=== PATIENT | female | born 1950 | race Caucasian/White ===

== ENCOUNTER 2018-04-12 15:55 | Inpatient (IN) | payer MEDICARE ==
[~2018-04-12] VITALS: Ht 157.5 cm; Wt 145.1 kg
[2018-04-12 18:00] VITALS: BP 132/60
[2018-04-12] MEDS ORDERED: POTASSIUM CHLO20 ME1 PO (18:46)
[2018-04-12] MEDS ORDERED: LASIX40 MG PO (18:48)
[2018-04-12] MEDS ORDERED: MIRALAX17 GM (19:46)
[2018-04-12] MEDS ORDERED: ZOFRAN ODT4 MG IV (19:46)
[2018-04-12] MEDS ORDERED: MORPHINE-NS2 MG/1 ML IV (19:46)
[2018-04-12] MEDS ORDERED: DOCUSATE SODIU100 MG PO (19:46)
[2018-04-12] MEDS ORDERED: FENTANYL1 EAC1 TOP (19:46)
[2018-04-12] MEDS ORDERED: DEXTROSE 5% IV ×2 (19:46→20:19)
[2018-04-12] MEDS ORDERED: [UNRECOGNIZED DRUG - OTHER] IV ×2 (19:46→20:19)
[2018-04-12] MEDS ORDERED: VANCOMYCIN HCL1 GM IV (19:46)
[2018-04-12] MEDS ORDERED: ACETAMINOPHEN650 MG RC (19:46)
[2018-04-12] MEDS ORDERED: PEPCID20 MG PO (19:46)
[2018-04-12] MEDS ORDERED: ZOSYN 3.373.375 GM/5 IVP (19:46)
[2018-04-12] MEDS ORDERED: LORAZEPAM1 MG IV (19:46)
[2018-04-12 20:00] VITALS: BP 141/61
[2018-04-12] MEDS ORDERED: VANCOMYCIN HCL 1 GM VIAL IV SCH (20:00)
[2018-04-12 20:12] LABS: BASOPHILS # (AUTO) 0.2 (0.0-0.1); BASOPHILS % 0.6 % (0.0-1.0); EOSINOPHILS # (AUTO) 1.7 (0.0-0.4); EOSINOPHILS % 5.1 % (0.0-6.0); HEMATOCRIT 29.3 % (34.2-44.1); HEMOGLOBIN 9.6 g/dL (12.0-16.0); LYMPHOCYTES # (AUTO) 1.6 (1.0-3.2); LYMPHOCYTES % 4.8 % (18.0-39.1); MEAN CORPUSCULAR HEMOGLOBIN 32.7 pg (28-32); MEAN CORPUSCULAR HGB CONC 32.8 g/dL (31-35); MEAN CORPUSCULAR VOLUME 99.7 fL (81-99); MONOCYTES # (AUTO) 1.5 (0.2-0.8); MONOCYTES % 4.6 % (4.4-11.3); NEUTROPHILS # (AUTO) 26.7 (2.1-6.9); NEUTROPHILS % 82.8 % (38.7-80.0); PLATELET COUNT 169 x10e3/uL (140-360); RED BLOOD COUNT 2.94 x10e6/uL (3.6-5.1)
[2018-04-12] MEDS ORDERED: MORPHINE SULFATE IV PRN (20:15)
[2018-04-12] MEDS ORDERED: HYDRALAZINE HCL 20 MG/ML VIAL IV PRN (20:15)
[2018-04-12] MEDS ORDERED: [UNRECOGNIZED DRUG - OTHER] IV PRN (20:15)
[2018-04-12] MEDS ORDERED: SODIUM CHLORIDE 0.9% IV PRN (20:15)
[2018-04-12] MEDS ORDERED: ACETAMINOPHEN650 M1 PO (20:16)
[2018-04-12] MEDS ORDERED: LORAZEPAM2 MG/1 M1 IVP (20:16)
[2018-04-12] MEDS ORDERED: ONDANSETRON4 MG/2 ML IV (20:16)
[2018-04-12] MEDS ORDERED: MORPHINE S30 MG/30 M IV (20:16)
[2018-04-12 20:18] LABS: BILIRUBIN,URINE NEGATIVE (NEGATIVE); CLARITY,URINE SL CLOUDY (CLEAR); COLOR,URINE YELLOW (YELLOW); KETONES,URINE NEGATIVE (NEGATIVE); LEUKOCYTE ESTERASE ,URINE NEGATIVE (NEGATIVE); NITRITE,URINE NEGATIVE (NEGATIVE); PROTEIN,URINE DIPSTICK NEGATIVE (NEGATIVE); URINE UROBILINOGEN 0.2 mg/dL (0.2 - 1)
[2018-04-12 20:19] LABS: BACTERIA,URINE RARE /HPF; EPITHELIAL CELLS,URINE FEW /LPF; MUCUS,URINE FEW (RARE); TRIPLE PHOSPHATE CRYSTAL,UR FEW (FEW)
[2018-04-12] MEDS ORDERED: ONDANSETRON HCL IV PRN (20:30)
[2018-04-12 20:33] LABS: ANION GAP 10.1 mmol/L (8-16); BLOOD UREA NITROGEN 14 mg/dL (7-26); BUN/CREATININE RATIO 18 (6-25); CALCIUM 11.3 mg/dL (8.4-10.2); CARBON DIOXIDE 27 mmol/L (22-29); CHLORIDE 99 mmol/L (98-107); CREATININE, SERUM 0.76 mg/dL (0.57-1.11); EST GLOMERULAR FILTRATION RATE > 60 ML/MIN (60-); GLUCOSE 90 mg/dL (74-118); POTASSIUM 4.1 mmol/L (3.5-5.1); SODIUM 132 mmol/L (136-145)
[2018-04-12 20:39] LABS: EOSINOPHILS % (MANUAL) 5 % (0-7); HYPOCHROMASIA SLIGHT; LYMPHOCYTES % (MANUAL) 6 % (19-48); MONOCYTES % (MANUAL) 3 % (3.4-9.0); NEUTROPHILS % (MANUAL) 86 % (40-74); PLATELET ESTIMATE ADEQUATE; PLATELET MORPHOLOGY COMMENT NORMAL; RBC MORPHOLOGY COMMENT NORMAL
[2018-04-12] MEDS ORDERED: ONDANSETRON HCL INJ 2 MG/ML VIAL IV PRN (20:45)
[2018-04-12 20:59] VITALS: BP 141/61
[2018-04-12] MEDS ORDERED: VANCOMYCIN 1GM/NS 250 ML 250 ML IV SCH (21:00)
[2018-04-12] MEDS: FENTANYL 50 MCG/HR PATCH TOP SCH (21:20)
[2018-04-12] MEDS: DEXTROSE 5%/0.9% SOD CHL 1,000 ML IV SCH (21:39)
[2018-04-12] MEDS: VANCOMYCIN 1GM/NS 250 ML 250 ML IV SCH (21:39)
[2018-04-12] MEDS: PIPER-TAZ 3.375 GM 50 ML IV SCH (22:11)
[2018-04-12] MEDS: MORPHINE SULFATE 2 MG/ML SYR IV PRN (22:35)
[2018-04-12] MEDS: ONDANSETRON HCL INJ 2 MG/ML VIAL IV PRN (22:35)
[2018-04-13] VITALS (7 sets, daily range): BP systolic 109–141; BP diastolic 55–62
[2018-04-13] MEDS: ONDANSETRON HCL INJ 2 MG/ML VIAL IV PRN ×4 (04:36→20:14)
[2018-04-13] MEDS: MORPHINE SULFATE 2 MG/ML SYR IV PRN ×4 (04:40→20:14)
[2018-04-13] MEDS: PIPER-TAZ 3.375 GM 50 ML IV SCH ×3 (05:28→22:10)
[2018-04-13 05:50] LABS: BASOPHILS # (AUTO) 0.2 (0.0-0.1); BASOPHILS % 0.5 % (0.0-1.0); EOSINOPHILS # (AUTO) 1.7 (0.0-0.4); EOSINOPHILS % 6.1 % (0.0-6.0); HEMATOCRIT 26.6 % (34.2-44.1); HEMOGLOBIN 8.6 g/dL (12.0-16.0); LYMPHOCYTES # (AUTO) 1.3 (1.0-3.2); LYMPHOCYTES % 4.4 % (18.0-39.1); MEAN CORPUSCULAR HGB CONC 32.3 g/dL (31-35); MEAN CORPUSCULAR VOLUME 98.9 fL (81-99); MONOCYTES # (AUTO) 1.2 (0.2-0.8); MONOCYTES % 4.2 % (4.4-11.3); NEUTROPHILS # (AUTO) 23.5 (2.1-6.9); NEUTROPHILS % 83.2 % (38.7-80.0); PLATELET COUNT 154 x10e3/uL (140-360); RED BLOOD COUNT 2.69 x10e6/uL (3.6-5.1); RED CELL DISTRIBUTION WIDTH 14.9 % (11.7-14.4)
[2018-04-13 06:27] LABS: ANION GAP 9.1 mmol/L (8-16); BLOOD UREA NITROGEN 15 mg/dL (7-26); BUN/CREATININE RATIO 20 (6-25); CALCIUM 11.2 mg/dL (8.4-10.2); CARBON DIOXIDE 27 mmol/L (22-29); CHLORIDE 102 mmol/L (98-107); CREATININE, SERUM 0.74 mg/dL (0.57-1.11); EST GLOMERULAR FILTRATION RATE > 60 ML/MIN (60-); GLUCOSE 88 mg/dL (74-118); MAGNESIUM 1.8 MG/DL (1.3-2.1); POTASSIUM 4.1 mmol/L (3.5-5.1); SODIUM 134 mmol/L (136-145)
[2018-04-13] MEDS: IPRATROPIUM BROMIDE 0.02% 2.5 ML NEB NEB SCH (07:00)
[2018-04-13] MEDS: LEVALBUTEROL HCL SOLN NEBU 0.63 MG/3 ML NEB INH SCH (07:00)
[2018-04-13] MEDS ORDERED: FAMOTIDINE 20 MG TAB PO SCH ×2 (07:30→09:00)
[2018-04-13 07:44] LABS: BAND NEUTROPHILS % (MANUAL) 8 %; EOSINOPHILS % (MANUAL) 3 % (0-7); LYMPHOCYTES % (MANUAL) 4 % (19-48); MONOCYTES % (MANUAL) 2 % (3.4-9.0); NEUTROPHILS % (MANUAL) 83 % (40-74)
[2018-04-13 07:45] LABS: ANISOCYTOSIS SLIGHT; HYPOCHROMASIA MODERATE; PLATELET ESTIMATE SLIGHTLY DECREASED; PLATELET MORPHOLOGY COMMENT NORMAL; RBC MORPHOLOGY COMMENT NORMAL
[2018-04-13 07:47] LABS: CHOL/HDL RATIO 7.1 (3.0-3.6)
--- NOTE | 2018-04-13 07:58 | History and Physical ---
PRIMARY CARE PHYSICIAN: Dr. Mckinney CHIEF COMPLAINT: Chills and rigors and abnormal labs. HISTORY OF PRESENT ILLNESS: This is a 68-year-old woman with a recent diagnosis of vulvar cancer diagnosed in February 2018, who is originally from [place] and here for medical management of the vulvar carcinoma. The patient has not received chemotherapy yet, but a port has been placed. Per the patient's , the doctors had difficulty in resecting the tumor. The patient went to [facility] for port placement. After going home, the patient fell and had rigors and chills and went back to the facility. Labs obtained showed markedly elevated white blood cell count. The patient was transferred here for management. History is limited. The patient's notes the patient has been coughing but has been complaining of pain. He is not sure where the pain is located. No other history is available at this time. PAST MEDICAL HISTORY 1. Fibromyalgia. 2. Vulvar cancer diagnosed in February 2018 without chemo or surgical management. 3. Urinary retention, status post suprapubic catheter placement in February 2018. 4. Small-bowel obstruction with partial bowel resection in 2011. 5. Constipation. 6. Chronic lower back pain. PAST SURGICAL HISTORY 1. Suprapubic catheter placement in February 2018. 2. Partial bowel resection due to small-bowel obstruction in 2011. 3. Right-sided chest port placement. ALLERGIES: PER ELECTRONIC MEDICAL RECORD. FAMILY/SOCIAL HISTORY: The patient is . She has 1 child. No alcohol, illicits or cigarettes. MEDICATIONS: Per electronic medical record. REVIEW OF SYSTEMS: Unobtainable. VITAL SIGNS: Have been reviewed. PHYSICAL EXAMINATION GENERAL: A tired-appearing woman resting in bed. HEENT: Anicteric. CARDIOVASCULAR: Normal S1 and S2. She has a 3/6 systolic murmur. LUNGS: Moderate breath sounds. ABDOMEN: Soft, nontender, nondistended. : A suprapubic catheter is in place. EXTREMITIES: She has 1+ leg edema bilaterally. SKIN: Dry. PSYCHIATRIC: Flat affect with moaning. NEUROLOGIC: Awake, alert, oriented to self only. LABS: Reviewed. MEDICATIONS: Reviewed. ASSESSMENT: A 68-year-old woman. 1. Sepsis. 2. Hypercalcemia. 3. Complicated urinary tract infection. 4. Suprapubic catheter-associated urinary tract infection. 5. Normocytic anemia. 6. Chronic lumbago. 7. Hyponatremia. 8. Transaminitis. 9. Morbid obesity. Body mass index is 45.0. 10. Acute metabolic encephalopathy. PLAN 1. Continue vancomycin and Zosyn antibiotics. Defer to infectious disease management. 2. Obtain hemoglobin A1c and lipid panel. 3. Some Lasix for lower extremity edema. 4. Obtain anemia panel. 5. Obtain intact PTH level. 6. Follow up urine and blood cultures. 7. Patient will need followup with her specialist for management of the vulvar cancer once she is discharged. 8. Utilize Lovenox and Pepcid for prophylaxis. 9. Continue bowel regimen. 10. Follow up testing. Job#: [id number]
[2018-04-13 08:13] LABS: FERRITIN 576.98 ng/mL (4.63-204.00)
[2018-04-13] MEDS: POLYETHYLENE GLYCOL 3350 17 GM PACK PO SCH ×2 (09:00→17:00)
[2018-04-13] MEDS ORDERED: FUROSEMIDE 40 MG TAB PO SCH (09:00)
[2018-04-13] MEDS: VANCOMYCIN 1GM/NS 250 ML 250 ML IV SCH ×2 (09:10→20:31)
[2018-04-13] MEDS: POTASSIUM CHLORIDE 20 MEQ TAB CR PO SCH (09:40)
[2018-04-13] MEDS: DOCUSATE SODIUM 100 MG CAP PO SCH ×2 (09:40→17:00)
--- NOTE | 2018-04-13 10:47 | Consultation ---
DATE OF CONSULTATION: April 13, 2018 Thank you, Dr. Morgan, for this consultation. REASON FOR CONSULTATION: Vulvar cancer. She is a 68-year-old female with a past medical history including vulvar mass, status post biopsy in February 2018. Report consistent with vulvar carcinoma. The patient was followed with radiation oncologist and medical oncologist. Plan of treatment to start the patient on concurrent chemoradiation. The patient already received chemo port placement. She is currently in the hospital with fever, chills, rigors, and worsening lethargy, and tiredness. Workup was consistent with acute infection. She also had complicated UTI with sepsis. Likely etiology is suprapubic catheter associated UTI. She was started on antibiotic treatment. She also had normocytic anemia. Kidney function was normal. The patient persistently feels fatigued and tired. She is also complaining of moderate abdominal discomfort. PAST MEDICAL HISTORY: Fibromyalgia, vulvar cancer. PAST SURGICAL HISTORY: Partial bowel resection secondary to small-bowel obstruction. ALLERGIES: SEE NURSING LIST. MEDICATIONS: List was reviewed. SOCIAL HISTORY: No current smoking, alcohol or drugs. REVIEW OF SYSTEMS: A 12-point review of systems as per HPI. FAMILY HISTORY: Noncontributory. PHYSICAL EXAMINATION GENERAL: Alert, awake and communicative. Fatigued, lethargic and tired. HEENT: Normocephalic and atraumatic. Sclerae pink. Conjunctivae clear. NECK: Supple. CHEST: Decreased breath sounds at the bases. CARDIOVASCULAR: Regular rate and rhythm. ABDOMEN: Mildly tender. EXTREMITIES: One plus edema. WEBSITE OPTIMIZATION STRATEGIST: Grossly intact. SKIN: Intact. LABS AND IMAGING: Reviewed. ASSESSMENT AND PLAN: The patient with a history of partial bowel resection admitted with sepsis and complicated urinary tract infection. She was recently diagnosed with vulvar cancer, and scheduled to receive concurrent chemoradiation. At this point, will continue antibiotic treatment. Oncological plan of care will be as an outpatient. The patient will benefit with concurrent chemoradiation and possible surgical resection after treatment. Anemia. The patient has anemia of chronic disease secondary to malignancy. Kidney function is normal. Ferritin was high. At this point, I do not recommend any intervention. The patient will benefit with blood transfusion if hemoglobin drops below 8. Will continue remaining care. Will follow the patient closely. Job#: [id number] NC
--- NOTE | 2018-04-13 13:14 | Consultation ---
DATE OF CONSULTATION: April 13, 2018 REASON FOR CONSULTATION: To evaluate and assist in managing the patient with leukocytosis. Information is gathered from the current medical record. The patient is known to me from recent hospitalization at [facility] in [facility]. The patient is a 68-year-old woman who was diagnosed with vulvar cancer in February 2008. It is not clear whether there is metastasis. The told me that surgery was not done for the cancer before for fear of bleeding complications. The patient had a Port-A-Cath placed about 5 days ago at [facility] and was reportedly discharged home. The 's story is not clear. It is not known for certain whether the patient fell. She reportedly developed chills and rigors and was taken back to [facility] where CBC initially showed a white count of 26,100 with 83% neutrophils. No significant fever was recorded there. Her white count subsequently increased to 30,900. She had blood cultures drawn at [facility], which were reported negative. It is not clear whether any urine culture was sent. When I evaluated her there, a Loomis catheter had blood-tinged urine. The patient has had no diarrhea. There is no report of recent steroid therapy. She has no history of a bone marrow abnormality. Because of her altered mental status/delirium and extreme leukocytosis, she has been transferred to this facility for further evaluation and treatment. MEDICAL HISTORY: As reported above. There is no history of diabetes mellitus. There is a history of atrial fibrillation, which, according to the , is intermittent and usually resolves when she receives magnesium and potassium. There is no history of kidney disease or liver disease. SOCIAL HISTORY: No report of recent tobacco, alcohol or other forms of recreational drug use. FAMILY HISTORY: Noncontributory to her current hospitalization. ALLERGIES: SHE IS REPORTED ALLERGIC TO KEFLEX AND HYDROCODONE. MEDICATIONS: She has been received treatment with vancomycin and Zosyn. For the rest of her medications, refer to the medication administration report. REVIEW OF SYSTEMS: The patient currently is bedridden. She appears frail and delirious. She is not coughing. No dyspnea at rest. She is moaning. When asked whether she has pain, she says "no." The had informed me at [facility] that she had a fentanyl patch. No nausea, vomiting, or diarrhea reported. No genitourinary complaints. There is no history of dysphagia. No rash or pruritus. PHYSICAL EXAMINATION GENERAL: She is an adult woman. She appears ill. She is moaning. She appears frail and somewhat debilitated. She is in no acute distress. VITALS: Maximum temperature recorded since her admission her is 98.9 degrees Fahrenheit. She is hemodynamically stable. HEENT: She has no gross pallor. No obvious icterus. No oropharyngeal lesions. NECK: Supple. CHEST: Symmetric. There is a Port-A-Cath in the right chest wall. The site is without acute erythema or fluctuance or drainage. Breath sounds are decreased at the lung bases. Heart sounds are regular without a significant murmur. ABDOMEN: Soft, obese, nontender with active bowel sounds. EXTREMITIES: There is gross pitting edema of her lower extremities. LABS: Her white count on April 12 recorded here was 32.3. Her white count currently is 28.2. Hemoglobin 8.6, down from 9.6. Platelet count 154, down from 169. Differential on her white count shows 83% neutrophils on an automated differential and 83% on manual differential. Her serum creatinine is 0.7. Urine culture has been collected. Blood cultures have been collected. Reports are pending. We have no imaging report. IMPRESSION: This 68-year-old woman has vulvar cancer. She has had a Port-A-Cath placed in the right chest wall. She has developed significant leukocytosis without an obvious focus of infection. Workup is in progress. Blood and urine cultures sent here have been processed. She is on treatment with vancomycin and Zosyn. I suggest to continue the same antibiotics. Monitor temperature, CBC, renal function. Consider CT scan of the chest, abdomen and pelvis for further evaluation to rule out an abscess. Continue supportive care. The patient has been seen by hematology-oncology. I have discussed the findings and treatment with the . I will discuss the patient with the primary physician, whom I thank for the consult and the opportunity to participate in the patient's care. Job#: [id number]
[2018-04-13] MEDS: ENOXAPARIN SOD INJ 40 MG/0.4 ML SYR SC SCH (17:36)
[2018-04-13] MEDS: FAMOTIDINE 20 MG/2 ML VIAL IV SCH (17:36)
--- NOTE | 2018-04-13 19:08 | Diagnostic Imaging Report ---
PROCEDURE: CT ABDOMEN AND PELVIS WITH CONTRAST TECHNIQUE: The abdomen and pelvis were scanned utilizing a multidetector helical scanner from the diaphragm to the lesser trochanter after the IV administration of 100 cc of Isovue 370 and the oral administration of water. Coronal and sagittal multiplanar reformations were obtained. COMPARISON: None. INDICATIONS: ABSCESS, PNEUMONIA, HEMATOMA FINDINGS: Exam limited by beam attenuation as the patient was unable to lift arms LOWER THORAX: Please see CT chest performed same date for further detail. HEPATOBILIARY: Decreased attenuation of the hepatic parenchyma compared to the spleen, consistent with fatty infiltration. Liver is enlarged, measuring 24 cm in the right midclavicular line. Subtle nodularity of the hepatic contour. No focal masses. No intra-or extrahepatic biliary ductal dilation. 0.5 cm radiopaque stone in the dependent portion of the gallbladder neck. No wall thickening or pericholecystic fluid. SPLEEN: Moderate splenomegaly, measuring 18 cm in craniocaudal diameter. No focal lesions. PANCREAS: No focal masses or ductal dilatation. ADRENALS: No adrenal nodules. KIDNEYS/URETERS: No hydronephrosis, stones, or solid mass lesions. PELVIC ORGANS/BLADDER: Bladder is decompressed. Suprapubic catheter in place. The uterus is atrophic. No adnexal masses. PERITONEUM / RETROPERITONEUM: No free air or fluid. LYMPH NODES: Enlarged left common iliac lymph node which measures 2.4 cm in short axis (series 2 image 77). Enlarged left external iliac lymph node/conglomerate which measures 3.7 cm in short axis (series 2 image 88). There is an enhancing 7.5 x 7.2 x 8.4 cm mass in the left inguinal region, likely representing inguinal lymph node conglomerate (series 2, image 114). Enlarged, enhancing right inguinal lymph node, which measures 1.6 cm in short axis (series 2, image 107). Borderline enlarged, mildly enhancing, deep right inguinal lymph node (series 2, image 112), which measures 1.0 cm in short axis. Mildly enlarged enhancing left inguinal lymph node measuring 1.1 cm in short axis (series 2 image 100). Mildly enlarged batsheva hepatis nodes which measure 1.0 and 1.2 cm in short axis (series 2, image 53 and 56). Mildly enlarged portacaval lymph node which measures 1.1 cm in short axis (series 2 image 52). VESSELS: The celiac trunk, superior and inferior mesenteric, and bilateral renal arteries are patent. Portal, superior mesenteric, and splenic veins are patent. The portal vein is dilated, measuring 1.5 cm. The splenic vein is dilated. GI TRACT: No bowel dilation or evidence of obstruction. No pericolonic inflammatory changes. Distal descending and sigmoid colon diverticulosis without diverticulitis. BONES AND SOFT TISSUES: Generalized osteopenia. Decreased height of the L1 vertebral body, likely reflecting an age-indeterminate compression deformity. Facet hypertrophy. L5-S1. Marked degenerative changes in bilateral hip joints. No aggressive lytic lesions. There is an approximately 12.7 x 4.3 x 9.9 cm enhancing solid mass with central areas of hypodensity suggesting necrosis, which extends from the right vulva to the posterior perineum at the level of the anus (second series 2, images 28-40, and series 300, image 70). Anterior pelvic wall hernias, as follows: * Approximately 10.1 x 4.7 x 4.6 cm anterior paramedian pelvic wall hernia containing fat and loops of large bowel (series 2 image 91 and sagittal image 94). The bowel has unremarkable appearance, without evidence of obstruction or strangulation. * A 12.5 x 6.3 x 8.9 cm fat and large and small bowel containing hernia located immediately inferior to the previously described hernia (series 2, image 100 and sagittal image 90). No evidence of bowel incarceration or strangulation. * An adjacent 7.0 x 4.7 x 5.9 cm fat and large bowel containing hernia is also noted (series 2, image 106, and sagittal image 68), without evidence of bowel strangulation or incarceration. IMPRESSION: 1. Large, enhancing, partially necrotic mass extending from the right vulva, to the posterior perineum at the level of the anus. 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 2. Large enhancing 8 cm mass in the left inguinal region, highly suspicious for metastatic inguinal lymph node conglomerate. There are additional enhancing bilateral enlarged inguinal lymph nodes which are highly suspicious for metastases . 3. Left external iliac and left common iliac lymph nodes, likely metastatic. 4. Moderate hepatomegaly with subtle nodularity of the hepatic contour suggesting cirrhosis. Moderate splenomegaly, dilated main portal and splenic veins, suggest portal hypertension. 5. Mildly enlarged batsheva hepatis and portacaval lymph nodes are likely reactive secondary to cirrhosis rather than metastatic given their location. 6. Cholelithiasis, without CT evidence of cholecystitis. 7. Several fat and bowel containing anterior pelvic wall hernias, as described. No evidence of bowel incarceration or strangulation. Harvey Rojas M.D. Dictated by: Harvey Rojas M.D. on 04/13/2018 at 18:20 Electronically approved by: Harvey Rojas M.D. on 04/13/2018 at 19:14
[2018-04-13] MEDS: DEXTROSE 5%/0.9% SOD CHL 1,000 ML IV SCH (20:31)
[2018-04-13] MEDS ORDERED: IOPAMIDOL 370 MG/ML 200 ML INFUS..BTL INJ ONE (21:26)
[2018-04-13] MEDS ORDERED: SODIUM CHLORIDE 0.9% 50ML 50 ML ONE (21:26)
[2018-04-14] VITALS (7 sets, daily range): BP systolic 98–146; BP diastolic 55–65
[2018-04-14] MEDS: MORPHINE SULFATE 2 MG/ML SYR IV PRN ×3 (02:15→11:09)
[2018-04-14] MEDS: ONDANSETRON HCL INJ 2 MG/ML VIAL IV PRN ×3 (02:15→11:09)
[2018-04-14] MEDS: PIPER-TAZ 3.375 GM 50 ML IV SCH ×3 (05:03→21:53)
[2018-04-14 06:16] LABS: HEMATOCRIT 28.1 % (34.2-44.1); MEAN CORPUSCULAR HEMOGLOBIN 32.1 pg (28-32); MEAN CORPUSCULAR VOLUME 100.4 fL (81-99); PLATELET COUNT 161 x10e3/uL (140-360)
[2018-04-14 06:39] LABS: ALANINE AMINOTRANSFERASE 24 IU/L (0-55); ALBUMIN 1.3 g/dL (3.5-5.0); ALBUMIN/GLOBULIN RATIO 0.3 (0.8-2.0); ALKALINE PHOSPHATASE 226 IU/L (40-150); BLOOD UREA NITROGEN 18 mg/dL (7-26); BUN/CREATININE RATIO 21 (6-25); CALCIUM 11.4 mg/dL (8.4-10.2); CARBON DIOXIDE 26 mmol/L (22-29); CHLORIDE 104 mmol/L (98-107); CREATININE, SERUM 0.84 mg/dL (0.57-1.11); EST GLOMERULAR FILTRATION RATE > 60 ML/MIN (60-); GLUCOSE 111 mg/dL (74-118); SODIUM 136 mmol/L (136-145)
[2018-04-14] MEDS: VANCOMYCIN 1GM/NS 250 ML 250 ML IV SCH (08:05)
[2018-04-14 08:44] LABS: ANISOCYTOSIS SLIGHT; BAND NEUTROPHILS % (MANUAL) 8 %; EOSINOPHILS % (MANUAL) 7 % (0-7); HYPOCHROMASIA SLIGHT; LYMPHOCYTES % (MANUAL) 8 % (19-48); MONOCYTES % (MANUAL) 6 % (3.4-9.0); MYELOCYTES % (MANUAL) 1 % (0-0); NEUTROPHILS % (MANUAL) 70 % (40-74); PLATELET ESTIMATE ADEQUATE; RBC MORPHOLOGY COMMENT NORMAL
[2018-04-14] MEDS: FUROSEMIDE INJ 10 MG/ML 4 ML VIAL IV SCH (08:44)
[2018-04-14] MEDS: DOCUSATE SODIUM 100 MG CAP PO SCH ×2 (08:44→16:13)
[2018-04-14] MEDS: POTASSIUM CHLORIDE 20 MEQ TAB CR PO SCH (08:44)
[2018-04-14] MEDS: POLYETHYLENE GLYCOL 3350 17 GM PACK PO SCH ×2 (08:44→16:13)
[2018-04-14] MEDS: FAMOTIDINE 20 MG/2 ML VIAL IV SCH ×2 (08:44→16:12)
[2018-04-14 08:45] LABS: PLATELET MORPHOLOGY COMMENT NORMAL
[2018-04-14 08:46] LABS: TOXIC GRANULATION SLIGHT
--- NOTE | 2018-04-14 09:08 | Progress Note ---
DATE: April 14, 2018 Patient was seen and examined today. Patient appears comfortable. Clinically doing the same. Still complaining of pain. Following ID and on antibiotics. PHYSICAL EXAMINATION GENERAL: Alert, awake and communicative. HEENT: Normocephalic and atraumatic. Sclerae pink. Conjunctivae clear. NECK: Supple. CHEST: Decreased breath sounds in the bases. ABDOMEN: Soft. EXTREMITIES: No edema. LABS AND IMAGING: Reviewed. ASSESSMENT AND PLAN: The patient with a history of vulvar cancer following radiation and medical oncology. Supposed to start chemoradiation. She is currently in the hospital with leukocytosis infection, and started on antibiotics, including vancomycin and Zosyn. So far, imaging workup consistent with large necrotic mass on the front of the right vulva. She has a metastatic lymph node, 8 cm in the left inguinal area. She also had a left external iliac and common iliac lymphadenopathy. The patient has been following radiation oncologist and medical oncologist. She is supposed to start radiation treatment as soon as possible likely with concurrent chemo. Counts are stable. At this point, continue current antibiotic treatment. RECOMMENDATIONS: Resume radiation outpatient as soon as possible. Will continue remaining care. Will follow the patient. Job#: [id number] DARLINE
[2018-04-14] MEDS ORDERED: BALSAM PERU/CASTOR OIL 60 GM OINT...G. TP SCH (10:00)
[2018-04-14] MEDS: DEXTROSE 5%/0.9% SOD CHL 1,000 ML IV SCH (13:38)
[2018-04-14] MEDS: LORAZEPAM INJ 2 MG/ML VIAL IV PRN (13:52)
--- NOTE | 2018-04-14 15:28 | Progress Note ---
DATE: April 14, 2018 The patient remains bedridden, somewhat frail and debilitated, somewhat delirious, otherwise in no acute distress. She is not coughing. No dyspnea at rest. No vomiting. No diarrhea. No other systemic complaints reported. In the past 24 hours temperatures were up to 98.8 degrees Fahrenheit. She is stable hemodynamically. She is obese. She has no gross pallor. No obvious icterus. No oropharyngeal lesions. The neck is supple. The chest is symmetric. Breath sounds are decreased at the lung bases. Heart sounds are regular with no new murmur. The abdomen is soft, bowel sounds are present. No acute erythema of the extremities. Her white count is 27.6, hemoglobin 9.0, platelet count 161. Her serum creatinine 0.8. Vancomycin trough level is reported at 40.3. There is a vaginal culture growing E. coli. Urine culture is negative. Blood cultures are negative. 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 There is a large 8 cm mass in the left inguinal region suspicious for metastatic inguinal lymph node conglomerate. There are other bilateral enlarged inguinal lymph nodes suspicious for metastasis. There is left external iliac and left colon/ileal lymph nodes likely metastasis. There is moderate hepatomegaly with subtle nodularity of the hepatic contour suggesting cirrhosis. There is splenomegaly. Dilated main, portal, and splenic veins suggestive of portal hypertension. There is enlarged batsheva hepatis and batsheva caval lymph nodes likely reactive secondary to cirrhosis. There is cholelithiasis without evidence of cholecystitis. There are several fat- and bowel-containing anterior pelvic wall hernias with no evidence of incarceration or strangulation. IMPRESSION: She has vulvar cancer with widespread lymph node metastasis. There is cirrhosis with portal hypertension. I suspect her leukocytosis is in fact due to the necrosis of her tumor mass with infection. I suggest continue current antimicrobial therapy, hold vancomycin until serum levels are less than 15. Monitor temperature, CBC, renal function. Continue supportive care. I have discussed the findings and impressions and treatment with the at the bedside. I also shared with him the CT scan report. Report of CT of the chest is not yet available. Job#: [id number] DG
[2018-04-14] MEDS: BALSAM PERU/CASTOR OIL 60 GM OINT...G. TP SCH (16:13)
[2018-04-14] MEDS: ENOXAPARIN SOD INJ 40 MG/0.4 ML SYR SC SCH (16:13)
[2018-04-15] VITALS (8 sets, daily range): BP systolic 105–131; BP diastolic 54–71
[2018-04-15] MEDS: DEXTROSE 5%/0.9% SOD CHL 1,000 ML IV SCH ×3 (00:53→20:25)
[2018-04-15] MEDS: MORPHINE SULFATE 2 MG/ML SYR IV PRN ×2 (00:54→04:57)
[2018-04-15] MEDS: LORAZEPAM INJ 2 MG/ML VIAL IV PRN ×3 (02:20→23:42)
[2018-04-15] MEDS: PIPER-TAZ 3.375 GM 50 ML IV SCH ×3 (05:21→21:22)
[2018-04-15 05:30] LABS: BASOPHILS # (AUTO) 0.2 (0.0-0.1); BASOPHILS % 0.8 % (0.0-1.0); EOSINOPHILS # (AUTO) 1.9 (0.0-0.4); EOSINOPHILS % 7.4 % (0.0-6.0); HEMATOCRIT 26.2 % (34.2-44.1); HEMOGLOBIN 8.5 g/dL (12.0-16.0); LYMPHOCYTES # (AUTO) 1.4 (1.0-3.2); LYMPHOCYTES % 5.5 % (18.0-39.1); MEAN CORPUSCULAR HEMOGLOBIN 32.3 pg (28-32); MEAN CORPUSCULAR HGB CONC 32.4 g/dL (31-35); MEAN CORPUSCULAR VOLUME 99.6 fL (81-99); MONOCYTES # (AUTO) 1.1 (0.2-0.8); MONOCYTES % 4.3 % (4.4-11.3); NEUTROPHILS # (AUTO) 20.3 (2.1-6.9); NEUTROPHILS % 80.5 % (38.7-80.0); PLATELET COUNT 140 x10e3/uL (140-360); RED BLOOD COUNT 2.63 x10e6/uL (3.6-5.1)
[2018-04-15 05:47] LABS: ANION GAP 10.6 mmol/L (8-16); BLOOD UREA NITROGEN 16 mg/dL (7-26); BUN/CREATININE RATIO 21 (6-25); CALCIUM 11.2 mg/dL (8.4-10.2); CARBON DIOXIDE 24 mmol/L (22-29); CHLORIDE 106 mmol/L (98-107); CREATININE, SERUM 0.77 mg/dL (0.57-1.11); EST GLOMERULAR FILTRATION RATE > 60 ML/MIN (60-); GLUCOSE 141 mg/dL (74-118); MAGNESIUM 1.6 MG/DL (1.3-2.1); POTASSIUM 3.6 mmol/L (3.5-5.1); SODIUM 137 mmol/L (136-145)
[2018-04-15 06:42] LABS: BAND NEUTROPHILS % (MANUAL) 3 %; EOSINOPHILS % (MANUAL) 6 % (0-7); LYMPHOCYTES % (MANUAL) 5 % (19-48); MONOCYTES % (MANUAL) 3 % (3.4-9.0); NEUTROPHILS % (MANUAL) 83 % (40-74)
[2018-04-15 06:43] LABS: ANISOCYTOSIS SLIGHT; HYPOCHROMASIA SLIGHT; PLATELET ESTIMATE SLIGHTLY DECREASED; PLATELET MORPHOLOGY COMMENT FEW LARGE; RBC MORPHOLOGY COMMENT NORMAL
[2018-04-15] MEDS: POTASSIUM CHLORIDE 20 MEQ TAB CR PO SCH (08:34)
[2018-04-15] MEDS: FUROSEMIDE INJ 10 MG/ML 4 ML VIAL IV SCH (08:34)
[2018-04-15] MEDS: DOCUSATE SODIUM 100 MG CAP PO SCH ×2 (08:34→17:00)
[2018-04-15] MEDS: FAMOTIDINE 20 MG/2 ML VIAL IV SCH ×2 (08:34→17:19)
[2018-04-15] MEDS: BALSAM PERU/CASTOR OIL 60 GM OINT...G. TP SCH ×2 (08:35→17:19)
--- NOTE | 2018-04-15 09:08 | Progress Note ---
DATE: April 15, 2018 Patient was seen and examined today. The patient is still complaining of persistent pain. No other events noted. The patient continues on Zosyn and vancomycin. Following ID very closely. PHYSICAL EXAMINATION GENERAL: Alert, awake, fatigued, lethargic, and in moderate pain. HEENT: Normocephalic and atraumatic. Sclerae pink. Conjunctivae clear. NECK: Supple. CHEST: Decreased at bases. CARDIOVASCULAR: Regular rate and rhythm. ABDOMEN: Mildly tender. EXTREMITIES: No edema. LABS AND IMAGING: Reviewed. ASSESSMENT AND PLAN: The patient with history of vulvar cancer with local metastatic disease. The patient has large necrotic mass with metastatic lymph node in the left inguinal, left external iliac and common iliac. The patient will benefit with concurrent chemoradiation. Radiologist and oncologist on board. Further recommendations as an outpatient. Anemia. The patient's current hemoglobin slightly dropped. Anemia workup shows anemia of chronic disease. Recommendation is blood transfusion if hemoglobin is below 8. Will continue to follow the patient closely. Job#: [id number] VT
[2018-04-15] MEDS: POLYETHYLENE GLYCOL 3350 17 GM PACK PO SCH ×2 (09:47→17:19)
[2018-04-15] MEDS: VANCOMYCIN 1GM/NS 250 ML 250 ML IV SCH ×2 (10:17→22:19)
[2018-04-15] MEDS: ONDANSETRON HCL INJ 2 MG/ML VIAL IV PRN (10:35)
[2018-04-15] MEDS: MORPHINE SULFATE INJ 4 MG/ML INJ IV PRN ×2 (10:35→23:35)
--- NOTE | 2018-04-15 11:54 | Diagnostic Imaging Report ---
PROCEDURE:X-RAY ABDOMEN - KUB COMPARISON:None. INDICATIONS:NG TUBE PLACEMENT FINDINGS: See conclusion CONCLUSION: 1. Limited KUB for evaluation of enteric tube placement. Enteric tube is noted below the left hemidiaphragm, with distal tip projecting in the proximal fundus and proximal side-port likely just past the GE junction. Further advancement is recommended. 2. No air-filled, dilated loops of bowel are identified. Harvey Rojas M.D. Dictated by: Harvey Rojas M.D. on 04/15/2018 at 12:00 Electronically approved by: Harvey Rojas M.D. on 04/15/2018 at 12:00
--- NOTE | 2018-04-15 13:24 | Diagnostic Imaging Report ---
PROCEDURE:X-RAY ABDOMEN - KUB COMPARISON:None. INDICATIONS:NG TUBE PLACEMENT FINDINGS: Limited exam for placement of enteric tube See conclusion . CONCLUSION: 1. Enteric tube has distal tip projecting in the distal stomach body/antrum. Harvey Rojas M.D. Dictated by: Harvey Rojas M.D. on 04/15/2018 at 13:29 Electronically approved by: Harvey Rojas M.D. on 04/15/2018 at 13:29
--- NOTE | 2018-04-15 15:29 | Progress Note ---
DATE: April 15, 2018 INFECTIOUS DISEASE PROGRESS NOTE The patient remains bedridden. The reports that she is arousable. She is not following any commands. She is in no acute distress but remains very ill. No report of nausea, vomiting or diarrhea. No overt medication reaction reported. In the past 24 hours, she had temperatures up to 97.8 degrees Fahrenheit. She is hemodynamically stable. She has no gross pallor, no obvious icterus, no oropharyngeal lesions. The neck is supple. The chest is symmetric. The lungs are clear. Heart sounds are regular without a new murmur. The abdomen is soft. Bowel sounds are present. No acute erythema of the extremities. There is edema of the lower extremities. Her white count is 25.1. Her creatinine 0.7. There are no new positive culture reports. IMPRESSION: She has vulvar cancer with pelvic metastasis to lymph nodes. She has cirrhosis of the liver with portal hypertension. She is encephalopathic. CT scan report suggestive of tumor necrosis which may in part explain her leukocytosis. I suggest continue current management. Monitor temperature, CBC, renal function. Monitor clinical response of treatment. The is aware of the CT scan findings. Job#: [id number] VIKKI
[2018-04-15] MEDS: ENOXAPARIN SOD INJ 40 MG/0.4 ML SYR SC SCH (17:19)
[2018-04-15] MEDS: FENTANYL 50 MCG/HR PATCH TOP SCH (21:22)
[2018-04-16] VITALS (7 sets, daily range): BP systolic 131–158; BP diastolic 60–79
[2018-04-16] MEDS: DEXTROSE 5%/0.9% SOD CHL 1,000 ML IV SCH ×3 (03:03→23:56)
[2018-04-16] MEDS: MORPHINE SULFATE INJ 4 MG/ML INJ IV PRN ×3 (03:53→20:00)
[2018-04-16] MEDS: PIPER-TAZ 3.375 GM 50 ML IV SCH ×3 (05:40→22:00)
[2018-04-16 05:44] LABS: BASOPHILS # (AUTO) 0.1 (0.0-0.1); BASOPHILS % 0.5 % (0.0-1.0); EOSINOPHILS # (AUTO) 1.3 (0.0-0.4); EOSINOPHILS % 5.8 % (0.0-6.0); HEMATOCRIT 29.4 % (34.2-44.1); HEMOGLOBIN 9.3 g/dL (12.0-16.0); LYMPHOCYTES # (AUTO) 1.3 (1.0-3.2); LYMPHOCYTES % 5.7 % (18.0-39.1); MEAN CORPUSCULAR HEMOGLOBIN 32.6 pg (28-32); MEAN CORPUSCULAR HGB CONC 31.6 g/dL (31-35); MEAN CORPUSCULAR VOLUME 103.2 fL (81-99); MONOCYTES # (AUTO) 0.7 (0.2-0.8); MONOCYTES % 3.2 % (4.4-11.3); NEUTROPHILS # (AUTO) 19.2 (2.1-6.9); NEUTROPHILS % 83.6 % (38.7-80.0); PLATELET COUNT 145 x10e3/uL (140-360); RED BLOOD COUNT 2.85 x10e6/uL (3.6-5.1); RED CELL DISTRIBUTION WIDTH 15.2 % (11.7-14.4)
[2018-04-16] MEDS: LORAZEPAM INJ 2 MG/ML VIAL IV PRN ×2 (05:45→22:06)
[2018-04-16 06:06] LABS: ALANINE AMINOTRANSFERASE 29 IU/L (0-55); ALBUMIN 1.3 g/dL (3.5-5.0); ALBUMIN/GLOBULIN RATIO 0.4 (0.8-2.0); ALKALINE PHOSPHATASE 252 IU/L (40-150); ANION GAP 10.4 mmol/L (8-16); BLOOD UREA NITROGEN 13 mg/dL (7-26); BUN/CREATININE RATIO 17 (6-25); CALCIUM 11.1 mg/dL (8.4-10.2); CARBON DIOXIDE 24 mmol/L (22-29); CHLORIDE 111 mmol/L (98-107); CREATININE, SERUM 0.77 mg/dL (0.57-1.11); EST GLOMERULAR FILTRATION RATE > 60 ML/MIN (60-); GLUCOSE 166 mg/dL (74-118); POTASSIUM 3.4 mmol/L (3.5-5.1); SODIUM 142 mmol/L (136-145)
--- NOTE | 2018-04-16 09:04 | Progress Note ---
DATE: April 16, 2018 The patient was seen and examined today. The patient is still complaining of lower abdominal pain. She is currently on pain management. PHYSICAL EXAMINATION GENERAL: Alert, awake and communicative. HEENT: Normocephalic and atraumatic. Sclerae pink. Conjunctivae clear. NECK: Supple. CHEST: Decreased breath sounds at bases. CARDIOVASCULAR: Regular rate and rhythm. ABDOMEN: Tender especially in the pelvic area. EXTREMITIES: No edema. LABS AND IMAGING: Reviewed. ASSESSMENT AND PLAN: The patient with a history of vulvar cancer with right necrotic denia with surrounding lymphadenopathy admitted with infection, on antibiotics. Infection is improving. Clinical condition is stable. At this point, continue pain management, antibiotic treatment. Outpatient chemoradiation treatment. Will monitor the patient closely. Job#: [id number] ME
[2018-04-16] MEDS: BALSAM PERU/CASTOR OIL 60 GM OINT...G. TP SCH ×2 (10:05→17:03)
[2018-04-16] MEDS: POLYETHYLENE GLYCOL 3350 17 GM PACK PO SCH ×2 (10:05→17:03)
[2018-04-16] MEDS: DOCUSATE SODIUM 100 MG CAP PO SCH ×2 (10:05→17:03)
[2018-04-16] MEDS: FUROSEMIDE INJ 10 MG/ML 4 ML VIAL IV SCH (10:05)
[2018-04-16] MEDS: FAMOTIDINE 20 MG/2 ML VIAL IV SCH ×2 (10:05→17:03)
[2018-04-16] MEDS: POTASSIUM CHLORIDE 20 MEQ TAB CR PO SCH (10:05)
[2018-04-16] MEDS: VANCOMYCIN 1GM/NS 250 ML 250 ML IV SCH ×2 (10:22→22:00)
[2018-04-16] MEDS: ENOXAPARIN SOD INJ 40 MG/0.4 ML SYR SC SCH (17:03)
[2018-04-16] MEDS: ONDANSETRON HCL INJ 2 MG/ML VIAL IV PRN (20:00)
[2018-04-17] VITALS (8 sets, daily range): BP systolic 130–165; BP diastolic 59–72
[2018-04-17 05:20] LABS: BASOPHILS # (AUTO) 0.1 (0.0-0.1); BASOPHILS % 0.5 % (0.0-1.0); EOSINOPHILS % 4.5 % (0.0-6.0); HEMATOCRIT 27.5 % (34.2-44.1); HEMOGLOBIN 8.8 g/dL (12.0-16.0); LYMPHOCYTES # (AUTO) 1.8 (1.0-3.2); LYMPHOCYTES % 8.1 % (18.0-39.1); MEAN CORPUSCULAR HEMOGLOBIN 32.6 pg (28-32); MEAN CORPUSCULAR VOLUME 101.9 fL (81-99); MONOCYTES % 4.4 % (4.4-11.3); NEUTROPHILS % 81.3 % (38.7-80.0); PLATELET COUNT 131 x10e3/uL (140-360); RED CELL DISTRIBUTION WIDTH 15.6 % (11.7-14.4)
[2018-04-17 05:40] LABS: ALANINE AMINOTRANSFERASE 35 IU/L (0-55); ALBUMIN 1.3 g/dL (3.5-5.0); ALKALINE PHOSPHATASE 246 IU/L (40-150); ANION GAP 8.4 mmol/L (8-16); BILIRUBIN,DIRECT 0.5 mg/dL (0.0-0.5); BLOOD UREA NITROGEN 14 mg/dL (7-26); BUN/CREATININE RATIO 19 (6-25); CALCIUM 11.1 mg/dL (8.4-10.2); CARBON DIOXIDE 27 mmol/L (22-29); CHLORIDE 111 mmol/L (98-107); CREATININE, SERUM 0.75 mg/dL (0.57-1.11); EST GLOMERULAR FILTRATION RATE > 60 ML/MIN (60-); GLUCOSE 156 mg/dL (74-118); MAGNESIUM 1.7 MG/DL (1.3-2.1); POTASSIUM 3.4 mmol/L (3.5-5.1); SODIUM 143 mmol/L (136-145)
[2018-04-17] MEDS: DEXTROSE 5%/0.9% SOD CHL 1,000 ML IV SCH ×3 (05:43→21:07)
[2018-04-17] MEDS: PIPER-TAZ 3.375 GM 50 ML IV SCH ×3 (05:43→21:28)
[2018-04-17] MEDS: ONDANSETRON HCL INJ 2 MG/ML VIAL IV PRN (06:00)
[2018-04-17] MEDS: MORPHINE SULFATE INJ 4 MG/ML INJ IV PRN ×4 (06:00→22:00)
--- NOTE | 2018-04-17 07:51 | Progress Note ---
DATE: April 17, 2018 Patient seen and examined today. Patient complaining of persistent pain. Family were present at the bedside. EXAMINATION GENERAL: Alert, awake, mild distress. HEENT: Normocephalic, atraumatic. Sclerae pale. Conjunctivae clear. NECK: Supple. CHEST: Poor inspiratory effort. Clear to auscultation. CARDIOVASCULAR: Regular rate and rhythm. ABDOMEN: Soft. EXTREMITIES: No edema. LABS AND IMAGING: Reviewed. ASSESSMENT AND PLAN: Patient with history of vulvar cancer with large necrotic mass, lymphadenopathy, urinary tract infection with sepsis, currently on antibiotic treatment. She also has anemia, hemoglobin 8.4. Anemia workup shows anemia of chronic disease. Recommendation, if hemoglobin dropped below 8. Vulvar cancer. Continue current pain management. Recommendation, chemoradiation as an outpatient. Sepsis. Following ID. Continue antibiotics. Will follow patient. Job#: [id number] CQ
[2018-04-17] MEDS ORDERED: POTASSIUM CHLORIDE 20 MEQ TAB CR PO NR (09:10)
[2018-04-17] MEDS: FAMOTIDINE 20 MG/2 ML VIAL IV SCH ×2 (09:26→17:55)
[2018-04-17] MEDS: BALSAM PERU/CASTOR OIL 60 GM OINT...G. TP SCH ×2 (09:26→17:55)
[2018-04-17] MEDS: POLYETHYLENE GLYCOL 3350 17 GM PACK PO SCH ×2 (09:26→17:55)
[2018-04-17] MEDS: FUROSEMIDE INJ 10 MG/ML 4 ML VIAL IV SCH (09:26)
[2018-04-17] MEDS: POTASSIUM CHLORIDE 20 MEQ TAB CR PO SCH (09:26)
[2018-04-17] MEDS: DOCUSATE SODIUM 100 MG CAP PO SCH (09:26)
[2018-04-17] MEDS: VANCOMYCIN 1GM/NS 250 ML 250 ML IV SCH ×2 (10:15→22:00)
--- NOTE | 2018-04-17 11:28 | Diagnostic Imaging Report ---
Examination: Single AP view of the chest. COMPARISON: None. INDICATION: Sepsis. DISCUSSION: Lines/tubes: Right chest Port-A-Cath with distal tip projected on the cavoatrial junction. NG/orogastric tube extending below the diaphragm, with distal portion extending to the left upper quadrant, with distal tip not included. Lungs: Bilateral hypoinflation. Prominence of the pulmonary vasculature bilaterally. Increased density in the left lower lobe may be related to effusion, atelectasis or developing pneumonia in the proper setting. Pleura: Increased density in the lower left hemithorax suggestive of pleural effusion. There is no pneumothorax. Heart and mediastinum: The cardiac silhouette is mildly enlarged possibly magnification by portable technique. Bones and soft tissues: No acute bony abnormalities. IMPRESSION: 1. Bilateral pulmonary venous congestion. 2. Small left pleural effusion and left basilar atelectasis. Developing pneumonia not excluded in the proper clinical setting. Signed by: Dr. Suze Love M.D. on 04/17/2018 11:25 AM
[2018-04-17] MEDS: LEVALBUTEROL HCL SOLN NEBU 0.63 MG/3 ML NEB INH SCH ×2 (11:58→19:40)
[2018-04-17] MEDS: IPRATROPIUM BROMIDE 0.02% 2.5 ML NEB NEB SCH ×2 (11:59→19:40)
--- NOTE | 2018-04-17 17:46 | Progress Note ---
DATE: April 16, 2018 The patient remains bedridden, frail and somewhat debilitated and delirious. She is in no acute distress. She is not coughing. No dyspnea at rest. No report of vomiting or diarrhea. No adverse medication reaction reported. PHYSICAL EXAMINATION VITALS: In the previous 24 hours, temperatures were up to 97.3 degrees Fahrenheit. She is hemodynamically stable. HEENT: There is no gross pallor. No obvious icterus. No oropharyngeal lesions. NECK: Supple. CHEST: Symmetric. Breath sounds are coarse in the lung carr. HEART: Sounds are regular. There is no new murmur. ABDOMEN: Soft. Bowel sounds are present. EXTREMITIES: There is no acute erythema of her extremities. Her white count is 22.9, hemoglobin 9.3 and platelet count 145,000. Serum creatinine is 0.7. There are no new positive culture reports. IMPRESSION: She has leukocytosis. She has metastatic vulvar carcinoma with necrosis. Her leukocytosis is probably multifactorial, including tumor necrosis with or without infection. The patient remains somewhat encephalopathic. I suggest continue current management. Monitor temperature, CBC and renal function. Continue supportive care. Job#: [id number] SC
[2018-04-17] MEDS: DOCUSATE SODIUM LIQD 100 MG/10 ML UDC NG SCH (17:55)
[2018-04-17] MEDS: ENOXAPARIN SOD INJ 40 MG/0.4 ML SYR SC SCH (17:55)
--- NOTE | 2018-04-17 18:00 | Progress Note ---
DATE: April 17, 2018 The patient remains bedridden. She appears frail and debilitated. She is currently in no acute distress. No report of vomiting. No report of diarrhea. No overt medication reaction reported. PHYSICAL EXAMINATION VITALS: In the past 24 hours, her maximum temperature was up to 98.2 degrees Fahrenheit. She is hemodynamically stable. HEENT: There is no pallor. No icterus. No oropharyngeal lesions. NECK: Supple. CHEST: Symmetric. Breath sounds are decreased at the lung bases. HEART: Sounds are regular. There is no new murmur. ABDOMEN: Soft. Bowel sounds are present. EXTREMITIES: There is no acute erythema of the extremities. Her white count is 22.1, hemoglobin 8.8 and platelet count down to 131,000. Serum creatinine is 0.7. There are no new positive culture reports. IMPRESSION: She has necrotic vulvar cancer with metastasis to lymph nodes. She is in encephalopathic. Her leukocytosis is likely multifactorial. Her platelet count is decreasing. She has cirrhosis of the liver with portal hypertension. I suggest continue current management. Monitor temperature, CBC and renal function. Continue supportive care. I have discussed the findings and treatment with the at the bedside. Job#: [id number] DARLINE
[2018-04-18] VITALS (7 sets, daily range): BP systolic 154–159; BP diastolic 65–74
[2018-04-18] MEDS: IPRATROPIUM BROMIDE 0.02% 2.5 ML NEB NEB SCH ×4 (01:00→20:15)
[2018-04-18] MEDS: LEVALBUTEROL HCL SOLN NEBU 0.63 MG/3 ML NEB INH SCH ×4 (01:00→20:15)
[2018-04-18] MEDS: DEXTROSE 5%/0.9% SOD CHL 1,000 ML IV SCH (03:03)
[2018-04-18] MEDS: MORPHINE SULFATE INJ 4 MG/ML INJ IV PRN ×2 (03:55→08:40)
[2018-04-18 05:18] LABS: BASOPHILS # (AUTO) 0.2 (0.0-0.1); BASOPHILS % 0.6 % (0.0-1.0); EOSINOPHILS # (AUTO) 1.1 (0.0-0.4); EOSINOPHILS % 4.1 % (0.0-6.0); HEMATOCRIT 26.9 % (34.2-44.1); HEMOGLOBIN 8.6 g/dL (12.0-16.0); LYMPHOCYTES # (AUTO) 1.4 (1.0-3.2); LYMPHOCYTES % 5.4 % (18.0-39.1); MEAN CORPUSCULAR HEMOGLOBIN 32.7 pg (28-32); MEAN CORPUSCULAR VOLUME 102.3 fL (81-99); MONOCYTES % 3.8 % (4.4-11.3); NEUTROPHILS # (AUTO) 22.5 (2.1-6.9); NEUTROPHILS % 83.9 % (38.7-80.0); PLATELET COUNT 131 x10e3/uL (140-360); RED BLOOD COUNT 2.63 x10e6/uL (3.6-5.1)
[2018-04-18 05:30] LABS: INR 1.57; PROTHROMBIN TIME 17.6 seconds (11.9-14.5)
[2018-04-18 05:39] LABS: ANION GAP 10.8 mmol/L (8-16); BLOOD UREA NITROGEN 15 mg/dL (7-26); BUN/CREATININE RATIO 19 (6-25); CALCIUM 11.6 mg/dL (8.4-10.2); CARBON DIOXIDE 25 mmol/L (22-29); CHLORIDE 113 mmol/L (98-107); CREATININE, SERUM 0.79 mg/dL (0.57-1.11); EST GLOMERULAR FILTRATION RATE > 60 ML/MIN (60-); GLUCOSE 183 mg/dL (74-118); MAGNESIUM 1.7 MG/DL (1.3-2.1); POTASSIUM 3.8 mmol/L (3.5-5.1); SODIUM 145 mmol/L (136-145)
[2018-04-18] MEDS: PIPER-TAZ 3.375 GM 50 ML IV SCH ×3 (05:41→21:20)
[2018-04-18 06:11] LABS: BAND NEUTROPHILS % (MANUAL) 2 %; LYMPHOCYTES % (MANUAL) 5 % (19-48); MONOCYTES % (MANUAL) 4 % (3.4-9.0); NEUTROPHILS % (MANUAL) 89 % (40-74)
[2018-04-18 06:13] LABS: ANISOCYTOSIS SLIGHT; HYPOCHROMASIA SLIGHT; PLATELET ESTIMATE ADEQUATE; PLATELET MORPHOLOGY COMMENT NORMAL; RBC MORPHOLOGY COMMENT NORMAL
[2018-04-18] MEDS: FUROSEMIDE INJ 10 MG/ML 4 ML VIAL IV SCH (08:40)
[2018-04-18] MEDS: DOCUSATE SODIUM LIQD 100 MG/10 ML UDC NG SCH (08:40)
[2018-04-18] MEDS: FAMOTIDINE 20 MG/2 ML VIAL IV SCH ×2 (08:40→17:07)
[2018-04-18] MEDS: BALSAM PERU/CASTOR OIL 60 GM OINT...G. TP SCH ×2 (08:40→17:07)
[2018-04-18] MEDS: POTASSIUM CHLORIDE 20 MEQ TAB CR PO SCH (08:40)
[2018-04-18] MEDS: POLYETHYLENE GLYCOL 3350 17 GM PACK PO SCH (08:40)
[2018-04-18] MEDS: VANCOMYCIN 1GM/NS 250 ML 250 ML IV SCH (10:00)
[2018-04-18] MEDS ORDERED: POLYETHYLENE GLYCOL 3350 17 GM PACK PO PRN (11:45)
[2018-04-18] MEDS ORDERED: DOCUSATE SODIUM LIQD 100 MG/10 ML UDC NG PRN (11:45)
[2018-04-18] MEDS ORDERED: HYDROMORPHONE 20MG/ NS 100ML IV PRN (12:15)
[2018-04-18 14:59] LABS: CLARITY,URINE CLOUDY (CLEAR); COLOR,URINE YELLOW (YELLOW)
[2018-04-18 15:00] LABS: BILIRUBIN,URINE NEGATIVE (NEGATIVE); KETONES,URINE NEGATIVE (NEGATIVE); LEUKOCYTE ESTERASE ,URINE NEGATIVE (NEGATIVE); NITRITE,URINE NEGATIVE (NEGATIVE); PROTEIN,URINE DIPSTICK NEGATIVE (NEGATIVE); URINE UROBILINOGEN 0.2 mg/dL (0.2 - 1)
[2018-04-18 15:07] LABS: BACTERIA,URINE FEW /HPF; CALCIUM OXALATE CRYSTALS,UR FEW (FEW); EPITHELIAL CELLS,URINE FEW /LPF; RBC,URINE >50 /HPF (0-5); WBC,URINE (MAN) 0-5 /HPF (0-5)
[2018-04-18] MEDS: ACETAMINOPHEN 325 MG TAB PO PRN ×2 (15:36→23:22)
--- NOTE | 2018-04-18 16:22 | Progress Note ---
DATE: April 18, 2018 The patient remains somewhat delirious. She is bedridden. She is in no acute distress. She is not coughing. No dyspnea at rest. No vomiting. No diarrhea. No adverse medication reaction reported. PHYSICAL EXAMINATION VITALS: In the past 24 hours, she had temperatures up to 99.2 degrees Fahrenheit. Her temperature currently 99.5. She is hemodynamically stable. HEENT: She has no pallor. There is no icterus. No oropharyngeal lesions. NECK: Supple. CHEST: Symmetric. Breath sounds are decreased at the lung bases. HEART: Sounds are regular without a new murmur. ABDOMEN: Obese and soft. Bowel sounds are present. EXTREMITIES: No acute erythema of her extremities. Her white count increased from 22.1 to 26.8. Her creatinine is 0.7. There are no new positive culture reports. IMPRESSION: Her white count is fluctuating. She has a necrotic vulvar tumor with metastasis to lymph nodes. She has cirrhosis of the liver with portal hypertension. She has low-grade fevers. I suggest we recheck blood and urine cultures. Continue current management. Monitor temperature, CBC and renal function. Continue to monitor clinical response to treatment. Overall, prognosis is rather poor. Job#: [id number] DARLINE
[2018-04-18] MEDS: ENOXAPARIN SOD INJ 40 MG/0.4 ML SYR SC SCH (17:07)
[2018-04-18] MEDS: FENTANYL 50 MCG/HR PATCH TOP SCH (21:10)
[2018-04-18] MEDS ORDERED: PHYTONADIONE 10 MG/ML AMP SC ONE (21:15)
[2018-04-19] MEDS: LEVALBUTEROL HCL SOLN NEBU 0.63 MG/3 ML NEB INH SCH ×4 (01:15→23:45)
[2018-04-19] MEDS: IPRATROPIUM BROMIDE 0.02% 2.5 ML NEB NEB SCH ×4 (01:15→23:45)
[2018-04-19 04:49] VITALS: BP 159/67
[2018-04-19] MEDS: PIPER-TAZ 3.375 GM 50 ML IV SCH ×2 (05:25→16:00)
[2018-04-19 06:14] LABS: BASOPHILS # (AUTO) 0.2 (0.0-0.1); BASOPHILS % 0.7 % (0.0-1.0); EOSINOPHILS # (AUTO) 1.1 (0.0-0.4); EOSINOPHILS % 3.3 % (0.0-6.0); HEMATOCRIT 28.8 % (34.2-44.1); HEMOGLOBIN 9.1 g/dL (12.0-16.0); LYMPHOCYTES # (AUTO) 2.2 (1.0-3.2); LYMPHOCYTES % 6.6 % (18.0-39.1); MEAN CORPUSCULAR HEMOGLOBIN 32.2 pg (28-32); MEAN CORPUSCULAR HGB CONC 31.6 g/dL (31-35); MEAN CORPUSCULAR VOLUME 101.8 fL (81-99); MONOCYTES # (AUTO) 1.2 (0.2-0.8); MONOCYTES % 3.6 % (4.4-11.3); NEUTROPHILS # (AUTO) 27.8 (2.1-6.9); NEUTROPHILS % 84.6 % (38.7-80.0); PLATELET COUNT 154 x10e3/uL (140-360); RED BLOOD COUNT 2.83 x10e6/uL (3.6-5.1); RED CELL DISTRIBUTION WIDTH 16.3 % (11.7-14.4)
[2018-04-19 06:17] LABS: ANION GAP 12.2 mmol/L (8-16); BLOOD UREA NITROGEN 20 mg/dL (7-26); BUN/CREATININE RATIO 25 (6-25); CALCIUM 12.1 mg/dL (8.4-10.2); CARBON DIOXIDE 25 mmol/L (22-29); CHLORIDE 113 mmol/L (98-107); CREATININE, SERUM 0.79 mg/dL (0.57-1.11); EST GLOMERULAR FILTRATION RATE > 60 ML/MIN (60-); GLUCOSE 156 mg/dL (74-118); POTASSIUM 4.2 mmol/L (3.5-5.1); SODIUM 146 mmol/L (136-145)
[2018-04-19 07:16] LABS: BAND NEUTROPHILS % (MANUAL) 1 %; LYMPHOCYTES % (MANUAL) 7 % (19-48); MONOCYTES % (MANUAL) 3 % (3.4-9.0); NEUTROPHILS % (MANUAL) 86 % (40-74)
[2018-04-19 07:17] LABS: PLATELET ESTIMATE SLIGHTLY DECREASED
[2018-04-19 07:18] LABS: HYPOCHROMASIA SLIGHT; PLATELET MORPHOLOGY COMMENT NORMAL; RBC MORPHOLOGY COMMENT NORMAL
[2018-04-19 07:50] VITALS: BP 153/69
[2018-04-19] MEDS: FUROSEMIDE INJ 10 MG/ML 4 ML VIAL IV SCH (08:24)
[2018-04-19] MEDS: POTASSIUM CHLORIDE 20 MEQ TAB CR PO SCH (08:25)
[2018-04-19] MEDS: FAMOTIDINE 20 MG/2 ML VIAL IV SCH ×2 (08:25→17:00)
[2018-04-19] MEDS ORDERED: PHYTONADIONE 10 MG/ML AMP SC ONE (09:00)
[2018-04-19] MEDS: BALSAM PERU/CASTOR OIL 60 GM OINT...G. TP SCH ×2 (09:00→17:00)
[2018-04-19] MEDS ORDERED: FUROSEMIDE INJ 10 MG/ML 4 ML VIAL IV NR (09:30)
--- NOTE | 2018-04-19 09:40 | Progress Note ---
DATE: April 19, 2018 The patient was seen and examined today. Still complaining of persistent pain. Currently, on pain medications and antibiotic treatment. Her recent hemoglobin was 9.1. No worsening anemia noted. The patient's platelet count is slightly improving. White cell count is still elevated. PHYSICAL EXAMINATION GENERAL: Alert, awake and communicative. HEENT: Normocephalic and atraumatic. Sclerae pink. Conjunctivae clear. NECK: Supple. CHEST: Decreased breath sounds. CARDIOVASCULAR: Regular rate and rhythm. ABDOMEN: Moderately tender. LABS AND IMAGING: Reviewed. ASSESSMENT AND PLAN: The patient with a history of multiple medical conditions, including sepsis, urinary tract infection, vulvar cancer. The patient is on antibiotics. White cell count is trending upward. Clinical condition is same. Hemoglobin improved. Platelet count is improved. Recommendation is continue current care. No hematological intervention. The patient will need concurrent chemoradiation as an outpatient. Will continue to follow ID recommendations. Will follow the patient closely. Job#: [id number] DARLINE
[2018-04-19 11:27] VITALS: BP 154/81
[2018-04-19 15:46] VITALS: BP 152/78
[2018-04-19] MEDS: ENOXAPARIN SOD INJ 40 MG/0.4 ML SYR SC SCH (17:00)
[2018-04-19] MEDS ORDERED: MEROPENEM 1GRAM 1 GM in SODIUM CHLORIDE 0.9% 100 ML 100 ML IV STA (18:01)
[2018-04-19] MEDS ORDERED: DAPTOMYCIN 500 MG in SODIUM CHLORIDE 0.9% 100 ML IV SCH (18:15)
--- NOTE | 2018-04-19 18:29 | Progress Note ---
DATE: April 19, 2018 INFECTIOUS DISEASE PROGRESS NOTE The patient is arousable. She appears delirious. She follows no commands. She remains bedridden, somewhat frail, somewhat debilitated. She is in discomfort. She is moaning as if in pain. I am told by the nursing staff that the does not want pain medications administered as he wants her sensorium to clear so that she can help him make end-of-life decisions. Maximum temperature in the past 24 hours up to 100.1 degrees Fahrenheit. Most recent temperature 99.9 degrees. She is stable hemodynamically. There is no gross pallor, no obvious icterus, no oropharyngeal lesions. Her neck is supple. The chest are symmetric. Breath sounds are decreased at lung bases. Heart sounds are regular without a new murmur. The abdomen is soft. Bowel sounds are present. No acute erythema of the extremities. Her white count has increased to 32.8 from 26.8 with 86% neutrophils. Her creatinine is 0.7. Blood and urine cultures were sent today. Reports are pending. IMPRESSION: She is septic. She has new fevers with increasing white count. She has a vulvar carcinoma with widespread lymph node metastasis. The leukocytosis may be multifactorial. I suggest continue current management, follow up on her cultures. Monitor temperature, CBC, renal function. Continue supportive care. The prognosis is poor. This patient also has cirrhosis with portal hypertension. Job#: [id number] VIKKI
[2018-04-19] MEDS ORDERED: MEROPENEM 1 GM VIAL IV SCH (18:30)
[2018-04-19] MEDS: DAPTOMYCIN 500 MG in SODIUM CHLORIDE 0.9% 100 ML IV SCH (19:00)
[2018-04-19 22:10] VITALS: BP 152/78
[2018-04-19 22:14] VITALS: BP 152/78
[2018-04-20] MEDS: NYSTATIN 15 GM POWDER UD BTL TOP SCH ×3 (03:09→17:00)
[2018-04-20 04:00] VITALS: BP 146/67
[2018-04-20 05:44] LABS: BASOPHILS # (AUTO) 0.3 (0.0-0.1); BASOPHILS % 0.8 % (0.0-1.0); EOSINOPHILS # (AUTO) 0.8 (0.0-0.4); EOSINOPHILS % 2.2 % (0.0-6.0); HEMATOCRIT 27.8 % (34.2-44.1); LYMPHOCYTES # (AUTO) 2.4 (1.0-3.2); LYMPHOCYTES % 6.9 % (18.0-39.1); MEAN CORPUSCULAR HEMOGLOBIN 32.5 pg (28-32); MEAN CORPUSCULAR HGB CONC 32.4 g/dL (31-35); MEAN CORPUSCULAR VOLUME 100.4 fL (81-99); MONOCYTES # (AUTO) 1.1 (0.2-0.8); MONOCYTES % 3.3 % (4.4-11.3); NEUTROPHILS # (AUTO) 29.6 (2.1-6.9); NEUTROPHILS % 85.6 % (38.7-80.0); PLATELET COUNT 176 x10e3/uL (140-360); RED BLOOD COUNT 2.77 x10e6/uL (3.6-5.1); RED CELL DISTRIBUTION WIDTH 16.4 % (11.7-14.4)
[2018-04-20 05:51] LABS: INR 1.43; PROTHROMBIN TIME 16.4 seconds (11.9-14.5)
[2018-04-20 06:09] LABS: ANION GAP 10.1 mmol/L (8-16); BLOOD UREA NITROGEN 25 mg/dL (7-26); BUN/CREATININE RATIO 28 (6-25); CALCIUM 12.2 mg/dL (8.4-10.2); CARBON DIOXIDE 29 mmol/L (22-29); CHLORIDE 111 mmol/L (98-107); EST GLOMERULAR FILTRATION RATE > 60 ML/MIN (60-); GLUCOSE 133 mg/dL (74-118); MAGNESIUM 2.2 MG/DL (1.3-2.1); POTASSIUM 4.1 mmol/L (3.5-5.1); SODIUM 146 mmol/L (136-145)
[2018-04-20] MEDS: LEVALBUTEROL HCL SOLN NEBU 0.63 MG/3 ML NEB INH SCH ×3 (07:00→20:45)
[2018-04-20] MEDS: IPRATROPIUM BROMIDE 0.02% 2.5 ML NEB NEB SCH ×3 (07:00→20:45)
[2018-04-20] MEDS: BALSAM PERU/CASTOR OIL 60 GM OINT...G. TP SCH ×2 (07:30→17:00)
[2018-04-20 07:56] VITALS: BP 142/62
[2018-04-20] MEDS: ACETAMINOPHEN 325 MG TAB PO PRN (08:15)
[2018-04-20] MEDS: ENOXAPARIN SOD INJ 60 MG/0.6 ML SYR SC SCH ×2 (09:00→17:00)
[2018-04-20] MEDS: FUROSEMIDE INJ 10 MG/ML 4 ML VIAL IV SCH (09:00)
[2018-04-20] MEDS ORDERED: ENOXAPARIN SOD INJ 40 MG/0.4 ML SYR SC SCH (09:00)
[2018-04-20] MEDS: FAMOTIDINE 20 MG/2 ML VIAL IV SCH ×2 (09:00→17:00)
[2018-04-20] MEDS: POTASSIUM CHLORIDE 20 MEQ TAB CR PO SCH (09:00)
[2018-04-20 09:27] LABS: BAND NEUTROPHILS % (MANUAL) 2 %; EOSINOPHILS % (MANUAL) 1 % (0-7); LYMPHOCYTES % (MANUAL) 3 % (19-48); MONOCYTES % (MANUAL) 4 % (3.4-9.0); NEUTROPHILS % (MANUAL) 90 % (40-74)
[2018-04-20 09:28] LABS: RBC MORPHOLOGY COMMENT NORMAL
[2018-04-20 09:29] LABS: PLATELET ESTIMATE ADEQUATE
[2018-04-20 09:30] LABS: ANISOCYTOSIS SLIG; PLATELET MORPHOLOGY COMMENT NORMAL; POIKILOCYTOSIS SLIGHT
--- NOTE | 2018-04-20 09:45 | Progress Note ---
DATE: April 20, 2018 Patient seen and examined today. Patient appears fatigued, lethargic and tired. She has persistent pain and on pain medication. She had Doppler done, which showed positive left lower extremity edema and thrombosis. PHYSICAL EXAMINATION GENERAL: Alert, awake and communicative. HEENT: Normocephalic and atraumatic. Sclerae pink. Conjunctivae clear. NECK: Supple. CHEST: Decreased breath sounds at bases. ABDOMEN: Soft. EXTREMITIES: No edema. LABS AND IMAGING: Reviewed. ASSESSMENT AND PLAN: Patient with history of recently diagnosed vulvar cancer with a big vulvar necrotic mass. There is no lymphadenopathy. Anemia. Sepsis. Now she has left lower extremity deep venous thrombosis. RECOMMENDATIONS 1. Start the patient on full dose of Lovenox treatment. 2. She will need a prolonged period of anticoagulation treatment. 3. She also has anemia. Current hemoglobin is improved. 4. Vulvar cancer. Recommendations are for chemo and radiation as an outpatient. 5. Urinary tract infection. Continue antibiotic treatment. 6. Will continue remaining care. Will follow the patient closely. Job#: [id number]
[2018-04-20] MEDS ORDERED: GADOBENATE DIMEGLUMINE 1 ML IV ONE (11:19)
[2018-04-20 12:39] VITALS: BP 130/66
--- NOTE | 2018-04-20 13:13 | Diagnostic Imaging Report ---
History: Rule out metastases Comparison studies: None Technique: Pre-contrast: Sagittal T2; axial T1-IR, MPGR, DWI, T2 FLAIR Post-contrast: axial and coronal T1. Intravenous contrast: 20 cc of Gadavist. Findings: Scalp: No abnormal signal. No masses. Bone marrow: Normal in signal intensity. Brain sulci: Appropriate for age. Ventricles: Normal in size . No hydrocephalus. Extra-axial: No masses, fluid collections or hemorrhage. Parenchyma: Few T2/flair hyperintensities of the periventricular and the white matter No masses, hemorrhage, acute or chronic vascular insults. No enhancing abnormalities. Suprasellar region: No abnormalities. Craniocervical junction: No abnormalities. Patent foramen magnum. No Chiari one malformation.. Vessels: Normal flow-voids in the arteries and sinuses. Incidental findings: None IMPRESSION: 1. No acute abnormality or evidence of metastatic disease. 2. Mild chronic microvascular ischemic changes of the white matter. Signed by: DR Toni Parker M.D. on 04/20/2018 1:09 PM
--- NOTE | 2018-04-20 15:59 | Progress Note ---
DATE: April 20, 2018 The patient is bedridden, frail, debilitated. She follows no commands. She appears encephalopathic. She moans when awake. She is not coughing. No dyspnea at rest. No vomiting, no diarrhea. No adverse medication reaction reported. PHYSICAL EXAMINATION VITAL SIGNS: Overnight she spiked temperature to 101.5 degrees Fahrenheit. Early this morning she spiked temperature to 101.5 degrees Fahrenheit. Temperature currently 100.6. She is hemodynamically stable. HEENT: There is no gross pallor. No obvious icterus. No oropharyngeal lesions. NECK: Supple. CHEST: Symmetric. LUNGS: Breath sounds are decreased at the lung bases. HEART: Sounds are regular. There is no new murmur. ABDOMEN: Soft. Bowel sounds are present. There is acute erythema of the extremities. Her white count has increased to 34.5. Again there is no diarrhea. No report of treatment with steroids. Her hemoglobin is 9.0, platelet count 176. Her serum creatinine is 0.9. Blood cultures from April 19 are negative. Urine culture from April 18 is negative. IMPRESSION: She has vulvar cancer with metastases to pelvic lymph nodes. She has leukocytosis that I suspect is likely related to her cancer. There is tumor necrosis. Her blood and urine cultures are negative from April 18 and . We changed her antibiotic treatment to daptomycin and meropenem in spite of which her white count is increasing. I suggest continue current management. Continue supportive care. It should be noted that this patient also has cirrhosis with portal hypertension. Job#: [id number] TIKA
[2018-04-20 16:35] VITALS: BP 139/69
[2018-04-20] MEDS: DAPTOMYCIN 500 MG in SODIUM CHLORIDE 0.9% 100 ML IV SCH (18:31)
[2018-04-20 20:00] VITALS: BP 165/88
[2018-04-20 22:59] VITALS: BP 165/88
[2018-04-21] VITALS (8 sets, daily range): BP systolic 129–152; BP diastolic 59–74
[2018-04-21] MEDS: LEVALBUTEROL HCL SOLN NEBU 0.63 MG/3 ML NEB INH SCH ×4 (01:00→19:03)
[2018-04-21] MEDS: IPRATROPIUM BROMIDE 0.02% 2.5 ML NEB NEB SCH ×4 (01:00→19:03)
[2018-04-21 04:10] LABS: BASOPHILS # (AUTO) 0.3 (0.0-0.1); BASOPHILS % 0.8 % (0.0-1.0); EOSINOPHILS # (AUTO) 1.7 (0.0-0.4); EOSINOPHILS % 4.5 % (0.0-6.0); HEMATOCRIT 27.3 % (34.2-44.1); HEMOGLOBIN 8.8 g/dL (12.0-16.0); LYMPHOCYTES # (AUTO) 2.3 (1.0-3.2); LYMPHOCYTES % 6.2 % (18.0-39.1); MEAN CORPUSCULAR HGB CONC 32.2 g/dL (31-35); MEAN CORPUSCULAR VOLUME 102.2 fL (81-99); MONOCYTES # (AUTO) 1.2 (0.2-0.8); MONOCYTES % 3.2 % (4.4-11.3); NEUTROPHILS # (AUTO) 30.8 (2.1-6.9); NEUTROPHILS % 83.8 % (38.7-80.0); PLATELET COUNT 174 x10e3/uL (140-360); RED BLOOD COUNT 2.67 x10e6/uL (3.6-5.1); RED CELL DISTRIBUTION WIDTH 16.6 % (11.7-14.4)
[2018-04-21 04:19] LABS: INR 1.48; PROTHROMBIN TIME 16.8 seconds (11.9-14.5)
[2018-04-21 04:27] LABS: CALCIUM 12.4 mg/dL (8.4-10.2); CREATININE, SERUM 0.95 mg/dL (0.57-1.11); MAGNESIUM 1.9 MG/DL (1.3-2.1)
[2018-04-21] MEDS: ACETAMINOPHEN 325 MG TAB PO PRN (05:48)
[2018-04-21 07:24] LABS: EOSINOPHILS % (MANUAL) 1 % (0-7); LYMPHOCYTES % (MANUAL) 7 % (19-48); MONOCYTES % (MANUAL) 2 % (3.4-9.0); NEUTROPHILS % (MANUAL) 90 % (40-74)
[2018-04-21 07:25] LABS: ANISOCYTOSIS SLIGHT; HYPOCHROMASIA SLIGHT; PLATELET ESTIMATE ADEQUATE; PLATELET MORPHOLOGY COMMENT NORMAL; RBC MORPHOLOGY COMMENT NORMAL; TEAR DROP CELLS FEW
[2018-04-21 07:26] LABS: TOXIC GRANULATION SLIGHT
[2018-04-21] MEDS ORDERED: PHYTONADIONE 10 MG/ML AMP IV STA (07:58)
[2018-04-21] MEDS: FUROSEMIDE INJ 10 MG/ML 4 ML VIAL IV SCH (08:28)
[2018-04-21] MEDS: FAMOTIDINE 20 MG/2 ML VIAL IV SCH ×2 (08:28→17:42)
[2018-04-21] MEDS ORDERED: PHYTONADIONE 10MG/ML 20 MG in SODIUM CHLORIDE 0.9% 100 ML IV NR (09:00)
[2018-04-21] MEDS: POTASSIUM CHLORIDE 20 MEQ TAB CR PO SCH (09:00)
--- NOTE | 2018-04-21 09:24 | Progress Note ---
DATE: April 21, 2018 SUBJECTIVE: Patient seen and examined today. Patient appeared same. Scheduled for the PEG placement today. PHYSICAL EXAMINATION: GENERAL: Alert, awake, mild discomfort, on pain medication. HEENT: Normocephalic, atraumatic. Sclerae pale. Conjunctivae clear. NECK: Supple. CHEST: Decreased breath sounds at bases. CARDIOVASCULAR: Regular rate and rhythm. ABDOMEN: Soft, mildly tender. EXTREMITIES: Plus edema. LABS AND IMAGING: Reviewed. ASSESSMENT AND PLAN: 1. Patient with history of vulvar cancer, has not received any treatment, scheduled for chemoradiation as an outpatient. 2. Leukocytosis, likely infection with malignancy. Infectious disease on the case. 3. Anemia. Hemoglobin running between 8.5 and 9. No evidence of any bleeding. 4. New onset of deep vein thrombosis. He is starting on Lovenox, currently hold because of procedure. Will continue remaining care. Will follow patient closely Job#: [id number]
[2018-04-21] MEDS: ACETAMINOPHEN 1000 MG/100 ML IV PRN ×2 (09:59→17:56)
[2018-04-21] MEDS ORDERED: FUROSEMIDE INJ 10 MG/ML 4 ML VIAL IV NR (10:00)
[2018-04-21] MEDS: NYSTATIN 15 GM POWDER UD BTL TOP SCH ×2 (10:19→17:56)
[2018-04-21] MEDS: BALSAM PERU/CASTOR OIL 60 GM OINT...G. TP SCH ×2 (10:19→17:56)
[2018-04-21] MEDS ORDERED: PROPOFOL IV EMULSION 10 MG/ML 50 ML VIAL ONE (13:15)
[2018-04-21] MEDS ORDERED: KETAMINE HCL INJ 50 MG/ML 10 ML VIAL ONE (14:14)
[2018-04-21] MEDS ORDERED: ONDANSETRON HCL INJ 2 MG/ML VIAL ONE (16:42)
--- NOTE | 2018-04-21 16:46 | Operative Report ---
DATE OF PROCEDURE: April 21, 2018 REFERRING PHYSICIAN: Dr. Cyrus Morgan. PROCEDURES PERFORMED: Esophagogastroduodenoscopy and percutaneous endoscopic gastrostomy tube placement. INDICATIONS FOR PROCEDURE: Dysphagia, abnormal swallow evaluation, NG tube feeding dependent. MEDICATION: Patient was done under MAC, please see anesthesiologist's note. PROCEDURE: With the patient in the supine position, flexible fiberoptic Olympus gastroscope was introduced into the esophagus under direct visualization without any difficulty. There were some erosions noted in the distal esophagus. The scope was then advanced with ease into the stomach. Mucosa overlying the antrum and the body revealed some diffuse erythema. The pylorus was of normal contour and shape, was intubated with ease, and the scope was advanced all the way to the second portion of the duodenum. The scope was then withdrawn slowly and mucosa overlying the proximal second portion and the duodenal bulb grossly appeared to be within normal limits. The scope was then withdrawn back into the stomach and retroflexed, and mucosa overlying the fundus and the cardia grossly appeared to be within normal limits. The scope was then straightened out and after delineation of a safe entry point per external digital palpation and transabdominal illumination, PEG tube insertion was carried out in the usual fashion. The scope was subsequently withdrawn after documenting good positioning of the intragastric bumper. Patient tolerated the procedure well. IMPRESSION 1. Distal erosive esophagitis. 2. Gastritis. 3. Percutaneous endoscopic gastrostomy tube placement carried out in the usual fashion. Patient tolerated the procedure well. PLAN: G-tube to drain to gravity in a [place] bag x24 hours, then can use. Patient will need an abdominal binder. Job#: [id number] PKU cc:CYRUS MORGAN MD
--- NOTE | 2018-04-21 17:05 | Progress Note ---
DATE: April 21, 2018 INFECTIOUS DISEASE PROGRESS NOTE The patient remains bedridden. She is delirious. She is in no acute distress. No report of vomiting. No report of diarrhea. No overt medication reaction reported. Temperatures in the past 24 hours have ranged from 99.9 to 102.1 degrees Fahrenheit. She is hemodynamically stable. She has no pallor. There is no icterus, no oropharyngeal lesions. The neck is supple. The chest is symmetric. Breath sounds are decreased at the lung bases. Heart sounds are regular without a new murmur. The abdomen is soft. Bowel sounds are present. There is no acute erythema of the extremities. Her white count is up to 36.7. Her creatinine is 0.9. Blood cultures from April 19 are reported negative. Urine culture from April 18 is negative. Her urine culture sent today is being processed. There are no other new positive culture reports. IMPRESSION: She has vulvar cancer with metastasis to pelvic lymph nodes. She has tumor necrosis. She is septic. Cultures are so far negative. She is having persistent fevers currently. The etiology is unclear. She is on daptomycin. Apparently she received only 1 dose of meropenem. I suggest meropenem is being restarted at the regular dosing of 1 g IV q.8 h. If the fevers persist, other etiologies should be sought such as infection of her Port-A-Cath or possible aspiration pneumonia. Continue current management and supportive care. Job#: [id number] VIKKI
[2018-04-21] MEDS: DAPTOMYCIN 500 MG in SODIUM CHLORIDE 0.9% 100 ML IV SCH (19:00)
[2018-04-21] MEDS ORDERED: DEXTROSE 5%/0.9% SOD CHL 1,000 ML IV SCH (20:30)
[2018-04-21] MEDS ORDERED: SODIUM CHLORIDE 0.9% 250ML 250 ML ONE (21:24)
[2018-04-21] MEDS: ONDANSETRON HCL INJ 2 MG/ML VIAL IV PRN (21:49)
[2018-04-21] MEDS: HYDROMORPHONE 1MG/1ML INJ IV PRN (21:49)
[2018-04-21] MEDS: MEROPENEM 1GRAM 1 GM in SODIUM CHLORIDE 0.9% 100 ML 100 ML IV SCH (22:00)
[2018-04-22] VITALS (8 sets, daily range): BP systolic 119–147; BP diastolic 49–71
[2018-04-22] MEDS: LEVALBUTEROL HCL SOLN NEBU 0.63 MG/3 ML NEB INH SCH ×4 (01:20→19:10)
[2018-04-22] MEDS: IPRATROPIUM BROMIDE 0.02% 2.5 ML NEB NEB SCH ×4 (01:20→19:10)
[2018-04-22 03:49] LABS: BASOPHILS # (AUTO) 0.2 (0.0-0.1); BASOPHILS % 0.6 % (0.0-1.0); EOSINOPHILS # (AUTO) 1.5 (0.0-0.4); EOSINOPHILS % 5.2 % (0.0-6.0); HEMATOCRIT 25.8 % (34.2-44.1); LYMPHOCYTES # (AUTO) 2.2 (1.0-3.2); LYMPHOCYTES % 7.7 % (18.0-39.1); MEAN CORPUSCULAR HEMOGLOBIN 32.9 pg (28-32); MEAN CORPUSCULAR VOLUME 106.2 fL (81-99); MONOCYTES % 3.3 % (4.4-11.3); NEUTROPHILS % 82.1 % (38.7-80.0); PLATELET COUNT 154 x10e3/uL (140-360); RED BLOOD COUNT 2.43 x10e6/uL (3.6-5.1); RED CELL DISTRIBUTION WIDTH 16.6 % (11.7-14.4)
[2018-04-22 04:12] LABS: ANION GAP 9.5 mmol/L (8-16); BLOOD UREA NITROGEN 26 mg/dL (7-26); BUN/CREATININE RATIO 30 (6-25); CALCIUM 12.4 mg/dL (8.4-10.2); CARBON DIOXIDE 31 mmol/L (22-29); CHLORIDE 113 mmol/L (98-107); CREATININE, SERUM 0.86 mg/dL (0.57-1.11); EST GLOMERULAR FILTRATION RATE > 60 ML/MIN (60-); GLUCOSE 91 mg/dL (74-118); MAGNESIUM 2.1 MG/DL (1.3-2.1); POTASSIUM 3.5 mmol/L (3.5-5.1); SODIUM 150 mmol/L (136-145)
[2018-04-22 04:15] LABS: AMYLASE 16 U/L (25-125); LIPASE 27 U/L (8-78)
[2018-04-22 04:25] LABS: ANISOCYTOSIS SLIGHT; BAND NEUTROPHILS % (MANUAL) 4 %; EOSINOPHILS % (MANUAL) 2 % (0-7); LYMPHOCYTES % (MANUAL) 3 % (19-48); MONOCYTES % (MANUAL) 3 % (3.4-9.0); NEUTROPHILS % (MANUAL) 87 % (40-74); RBC MORPHOLOGY COMMENT ABNORMAL
[2018-04-22 04:26] LABS: PLATELET ESTIMATE ADEQUATE; PLATELET MORPHOLOGY COMMENT NORMAL
[2018-04-22] MEDS: HYDROMORPHONE 1MG/1ML INJ IV PRN ×2 (05:30→12:41)
[2018-04-22] MEDS: ONDANSETRON HCL INJ 2 MG/ML VIAL IV PRN (05:30)
[2018-04-22] MEDS: MEROPENEM 1GRAM 1 GM in SODIUM CHLORIDE 0.9% 100 ML 100 ML IV SCH (05:40)
[2018-04-22] MEDS: ACETAMINOPHEN 1000 MG/100 ML IV PRN ×3 (06:52→20:57)
[2018-04-22] MEDS: FUROSEMIDE INJ 10 MG/ML 4 ML VIAL IV SCH (09:17)
[2018-04-22] MEDS: FAMOTIDINE 20 MG/2 ML VIAL IV SCH ×2 (09:17→17:50)
--- NOTE | 2018-04-22 09:44 | Progress Note ---
DATE: April 22, 2018 SUBJECTIVE: Patient seen and examined today. She appeared lethargic and tired, on pain medication. The patient has worsening anemia. Hemoglobin dropped to 8. She is on Lovenox for DVT. PHYSICAL EXAMINATION GENERAL: Alert, awake, comfortable. HEENT: Normocephalic, atraumatic. Sclerae pale. Conjunctivae clear. NECK: Supple. CHEST: Decreased breath sounds at bases. ABDOMEN: Soft. EXTREMITIES: Lower extremity edema. LABS AND IMAGING: Reviewed. ASSESSMENT AND PLAN: Patient has history of vulvar cancer, deep venous thrombosis, anemia, pain syndrome. Currently on pain medications and Lovenox. RECOMMENDATION: Blood transfusion. Chemoradiation for vulvar cancer as an outpatient. Will continue to manage. Will follow the patient. Job#: [id number]
[2018-04-22] MEDS: DEXTROSE 5%/0.225% SOD CHL 1,000 ML IV SCH ×2 (09:58→21:02)
[2018-04-22] MEDS: FENTANYL 50 MCG/HR PATCH TOP SCH (10:00)
[2018-04-22] MEDS ORDERED: FUROSEMIDE INJ 10 MG/ML 4 ML VIAL IV NR (10:00)
[2018-04-22] MEDS: BALSAM PERU/CASTOR OIL 60 GM OINT...G. TP SCH ×2 (10:47→18:18)
[2018-04-22] MEDS: NYSTATIN 15 GM POWDER UD BTL TOP SCH ×2 (10:47→18:18)
[2018-04-22] MEDS: POTASSIUM CHLORIDE 20 MEQ TAB CR PO SCH (13:00)
[2018-04-22] MEDS: MEROPENEM 1 GM VIAL IV SCH ×2 (13:43→20:38)
[2018-04-22] MEDS: DAPTOMYCIN 500 MG in SODIUM CHLORIDE 0.9% 100 ML IV SCH (20:35)
[2018-04-23] VITALS (9 sets, daily range): BP systolic 115–138; BP diastolic 55–73
[2018-04-23] MEDS: IPRATROPIUM BROMIDE 0.02% 2.5 ML NEB NEB SCH ×4 (01:12→19:30)
[2018-04-23] MEDS: LEVALBUTEROL HCL SOLN NEBU 0.63 MG/3 ML NEB INH SCH ×4 (01:12→15:40)
[2018-04-23] MEDS: MEROPENEM 1 GM VIAL IV SCH ×3 (05:19→21:00)
[2018-04-23 05:56] LABS: BASOPHILS # (AUTO) 0.2 (0.0-0.1); BASOPHILS % 0.5 % (0.0-1.0); EOSINOPHILS # (AUTO) 2.9 (0.0-0.4); EOSINOPHILS % 9.4 % (0.0-6.0); LYMPHOCYTES # (AUTO) 2.2 (1.0-3.2); LYMPHOCYTES % 7.1 % (18.0-39.1); MEAN CORPUSCULAR HEMOGLOBIN 32.9 pg (28-32); MEAN CORPUSCULAR HGB CONC 30.8 g/dL (31-35); MEAN CORPUSCULAR VOLUME 106.8 fL (81-99); MONOCYTES % 3.2 % (4.4-11.3); NEUTROPHILS # (AUTO) 24.3 (2.1-6.9); PLATELET COUNT 140 x10e3/uL (140-360); RED BLOOD COUNT 2.34 x10e6/uL (3.6-5.1); RED CELL DISTRIBUTION WIDTH 16.7 % (11.7-14.4)
[2018-04-23 06:10] LABS: HEMOGLOBIN 7.7 g/dL (12.0-16.0)
[2018-04-23 06:12] LABS: ANION GAP 9.5 mmol/L (8-16); BLOOD UREA NITROGEN 26 mg/dL (7-26); BUN/CREATININE RATIO 29 (6-25); CALCIUM 12.4 mg/dL (8.4-10.2); CARBON DIOXIDE 29 mmol/L (22-29); CHLORIDE 110 mmol/L (98-107); CREATININE, SERUM 0.89 mg/dL (0.57-1.11); EST GLOMERULAR FILTRATION RATE > 60 ML/MIN (60-); GLUCOSE 169 mg/dL (74-118); POTASSIUM 3.5 mmol/L (3.5-5.1); SODIUM 145 mmol/L (136-145)
--- NOTE | 2018-04-23 06:31 | Diagnostic Imaging Report ---
EXAMINATION: CHEST SINGLE (PORTABLE) INDICATION: Pneumonia. COMPARISON: 04/17/2018 FINDINGS: TUBES and LINES: Right chest port is stable. NG tube has been removed. LUNGS: Lungs are not well inflated. There are bibasilar atelectasis. There is mild prominence of the central pulmonary vasculature, consistent with pulmonary venous congestion. Confluent opacities in the bilateral perihilar and left lower lobe are stable PLEURA: No pleural effusion or pneumothorax. HEART AND MEDIASTINUM: Cardiac size is mildly enlarged. BONES AND SOFT TISSUES: No acute osseous lesion. Soft tissues are unremarkable. UPPER ABDOMEN: No free air under the diaphragm. IMPRESSION: Stable findings in the chest with bilateral perihilar and left lower lobe airspace disease. These findings may represent pneumonia or edema Signed by: Dr. Albino Malcolm M.D. on 04/23/2018 6:28 AM
[2018-04-23] MEDS: DEXTROSE 5%/0.225% SOD CHL 1,000 ML IV SCH ×2 (07:09→15:30)
[2018-04-23 08:07] LABS: EOSINOPHILS % (MANUAL) 5 % (0-7); LYMPHOCYTES % (MANUAL) 3 % (19-48); MONOCYTES % (MANUAL) 1 % (3.4-9.0); NEUTROPHILS % (MANUAL) 91 % (40-74)
[2018-04-23 08:08] LABS: ANISOCYTOSIS SLIGHT; HYPOCHROMASIA MODERATE; PLATELET ESTIMATE SLIGHTLY DECREASED; PLATELET MORPHOLOGY COMMENT NORMAL; RBC MORPHOLOGY COMMENT NORMAL
[2018-04-23] MEDS: BALSAM PERU/CASTOR OIL 60 GM OINT...G. TP SCH ×2 (08:30→17:00)
[2018-04-23] MEDS: ENOXAPARIN SOD INJ 60 MG/0.6 ML SYR SC SCH ×2 (08:30→17:00)
[2018-04-23] MEDS: FAMOTIDINE 20 MG/2 ML VIAL IV SCH ×2 (08:30→17:00)
[2018-04-23] MEDS: BETAMETHASONE/CLOTRIMAZOLE CR 15 GM TUBE TOP SCH ×2 (08:30→17:00)
[2018-04-23] MEDS: FUROSEMIDE INJ 10 MG/ML 4 ML VIAL IV SCH (08:30)
[2018-04-23] MEDS ORDERED: SODIUM CHLORIDE 0.9% 250ML 250 ML ONE (09:51)
[2018-04-23] MEDS ORDERED: FUROSEMIDE INJ 10 MG/ML 4 ML VIAL IV ONE (10:30)
[2018-04-23] MEDS: HYDROMORPHONE 1MG/1ML INJ IV PRN ×3 (11:30→23:52)
[2018-04-23] MEDS ORDERED: ONDANSETRON HCL INJ 2 MG/ML VIAL IV PRN (12:00)
[2018-04-23] MEDS: DAPTOMYCIN 500 MG in SODIUM CHLORIDE 0.9% 100 ML IV SCH (18:48)
--- NOTE | 2018-04-23 20:28 | Progress Note ---
DATE: April 23, 2018 SUBJECTIVE: The patient is resting in bed. She is in no acute distress. She is not coughing currently. No dyspnea at rest. No vomiting. No diarrhea. No overt medication reaction. OBJECTIVE: GENERAL: The patient remains bedridden. She is frail and debilitated. She moans. She opens her eyes to stimulation, but is not following commands. VITAL SIGNS: Maximum temperature in the past 24 hours was up to 101.1 degrees Fahrenheit. Her most recent temperature is 99.2. She is stable hemodynamically. HEENT: She has no gross pallor. There is no obvious icterus. No oropharyngeal lesions. NECK: Her neck is supple. CHEST: The chest is symmetric. Breath sounds are decreased at the lung bases. HEART: Heart sounds are regular without a new murmur. ABDOMEN: Soft. Bowel sounds are present. EXTREMITIES: No acute erythema of the extremities. Her white count 36.7 on April 21, 29.2 on April 22, and 31.1 currently. Blood and urine cultures from April 19 and April 21 are negative. IMPRESSION: She has vulvar cancer with pelvic metastasis. She has cirrhosis with portal hypertension. She is septic, probably from tumor necrosis. PLAN: I suggest to continue current management. She is encephalopathic, which is likely multifactorial. I suggest to continue current management, monitor temperatures, CBC and renal function. Continue supportive care. I have discussed the patient with the at the bedside. Job#: [id number]
[2018-04-24] VITALS (7 sets, daily range): BP systolic 114–143; BP diastolic 56–65
[2018-04-24] MEDS: IPRATROPIUM BROMIDE 0.02% 2.5 ML NEB NEB SCH ×4 (00:55→19:35)
[2018-04-24] MEDS: LEVALBUTEROL HCL SOLN NEBU 0.63 MG/3 ML NEB INH SCH ×4 (00:55→19:50)
[2018-04-24] MEDS: DEXTROSE 5%/0.225% SOD CHL 1,000 ML IV SCH (02:33)
[2018-04-24] MEDS: MEROPENEM 1 GM VIAL IV SCH ×3 (05:12→21:05)
[2018-04-24 05:22] LABS: BASOPHILS # (AUTO) 0.1 (0.0-0.1); BASOPHILS % 0.5 % (0.0-1.0); EOSINOPHILS # (AUTO) 1.8 (0.0-0.4); EOSINOPHILS % 7.3 % (0.0-6.0); HEMATOCRIT 26.7 % (34.2-44.1); HEMOGLOBIN 8.4 g/dL (12.0-16.0); LYMPHOCYTES # (AUTO) 1.7 (1.0-3.2); LYMPHOCYTES % 7.2 % (18.0-39.1); MEAN CORPUSCULAR HEMOGLOBIN 32.7 pg (28-32); MEAN CORPUSCULAR HGB CONC 31.5 g/dL (31-35); MEAN CORPUSCULAR VOLUME 103.9 fL (81-99); MONOCYTES # (AUTO) 0.9 (0.2-0.8); MONOCYTES % 3.6 % (4.4-11.3); NEUTROPHILS # (AUTO) 19.4 (2.1-6.9); NEUTROPHILS % 80.3 % (38.7-80.0); PLATELET COUNT 130 x10e3/uL (140-360); RED BLOOD COUNT 2.57 x10e6/uL (3.6-5.1); RED CELL DISTRIBUTION WIDTH 17.3 % (11.7-14.4)
[2018-04-24 05:46] LABS: ANION GAP 8.8 mmol/L (8-16); BLOOD UREA NITROGEN 23 mg/dL (7-26); BUN/CREATININE RATIO 29 (6-25); CARBON DIOXIDE 31 mmol/L (22-29); CHLORIDE 108 mmol/L (98-107); EST GLOMERULAR FILTRATION RATE > 60 ML/MIN (60-); GLUCOSE 146 mg/dL (74-118); MAGNESIUM 2.2 MG/DL (1.3-2.1); POTASSIUM 3.8 mmol/L (3.5-5.1); SODIUM 144 mmol/L (136-145)
[2018-04-24 06:03] LABS: ALBUMIN 1.3 g/dL (3.5-5.0); BILIRUBIN,DIRECT 0.5 mg/dL (0.0-0.5)
[2018-04-24 06:51] LABS: ANISOCYTOSIS SLIGHT; EOSINOPHILS % (MANUAL) 4 % (0-7); LYMPHOCYTES % (MANUAL) 12 % (19-48); MONOCYTES % (MANUAL) 4 % (3.4-9.0); NEUTROPHILS % (MANUAL) 80 % (40-74); PLATELET ESTIMATE ADEQUATE; PLATELET MORPHOLOGY COMMENT NORMAL; RBC MORPHOLOGY COMMENT NORMAL
[2018-04-24] MEDS: HYDROMORPHONE 1MG/1ML INJ IV PRN ×2 (07:34→17:50)
[2018-04-24] MEDS: POTASSIUM CHLORIDE 20MEQ/15ML UDC NG SCH (09:00)
[2018-04-24] MEDS: FAMOTIDINE 20 MG/2 ML VIAL IV SCH ×2 (09:00→16:42)
[2018-04-24] MEDS: ENOXAPARIN SOD INJ 60 MG/0.6 ML SYR SC SCH ×2 (09:00→16:42)
[2018-04-24] MEDS: BETAMETHASONE/CLOTRIMAZOLE CR 15 GM TUBE TOP SCH ×2 (09:00→16:43)
[2018-04-24] MEDS: FUROSEMIDE INJ 10 MG/ML 4 ML VIAL IV SCH (09:00)
[2018-04-24] MEDS: BALSAM PERU/CASTOR OIL 60 GM OINT...G. TP SCH ×2 (09:00→16:43)
--- NOTE | 2018-04-24 14:36 | Progress Note ---
DATE: April 24, 2018 The patient remains bedridden, frail and debilitated. She is in no acute distress. She is not coughing currently. No dyspnea at rest. No vomiting. No diarrhea. No overt medication reaction reported. PHYSICAL EXAMINATION VITALS: In the past 24 hours, she had temperatures up to 99.8 degrees Fahrenheit. Her most recent temperature is 98.8. She is hemodynamically stable. HEENT: There is no gross pallor. No obvious icterus. No oropharyngeal lesions. NECK: Supple. CHEST: Symmetric. Breath sounds are decreased at the lung bases. HEART: Regular without any new murmur. ABDOMEN: Soft. Bowel sounds are present. EXTREMITIES: No acute erythema of her extremities. Her white count is 24.1 down from 31.1. Her creatinine is 0.8. There are no new positive culture reports. IMPRESSION: She has vulvar cancer with necrosis and metastases to pelvic lymph nodes. She has cirrhosis with portal hypertension. She is encephalopathic, which is likely multifactorial. I suggest continue current management. Monitor temperature, CBC and renal function. Her white count seems to be trending down. Her fevers seem to be resolving. Job#: [id number] DARLINE
[2018-04-24] MEDS ORDERED: HYDROMORPHONE 1MG/1ML INJ IV PRN (19:00)
--- NOTE | 2018-04-24 20:53 | Progress Note ---
DATE: April 23, 2018 This is late entry. SUBJECTIVE: Patient seen and examined. Patient appeared lethargic, poorly communicative. Family was present at interview. PHYSICAL EXAMINATION: GENERAL: Alert, awake, poorly communicative. HEENT: Normocephalic, atraumatic. Sclerae pale. Conjunctivae clear. NECK: Supple. CHEST: Decreased breath sounds on bases. CARDIOVASCULAR: Regular rate and rhythm. ABDOMEN: Soft. EXTREMITIES: No edema. LABS AND IMAGING: Reviewed. ASSESSMENT AND PLAN: Patient with history of locally advanced vulvar cancer, has not received any treatment, waiting for outpatient followup . She also had worsening anemia, leukocytosis, and sepsis. RECOMMENDATIONS: Blood transfusion. Continue antibiotic treatment. Patient's platelet count was trending downwards, this is likely because of current medication. Try to avoid thrombocytopenic medication. Will continue remaining care. Will follow patient closely. Job#: [id number]
--- NOTE | 2018-04-24 20:54 | Progress Note ---
AUDIO CUTTING IN AND OUT IN SOME PORTIONS OF THE REPORT DATE: April 24, 2018 Patient seen and examined today. Patient appearing comfortable. Patient has no evidence of any bleeding. She received blood transfusions. Hemoglobin improved. EXAMINATION GENERAL: Alert, awake, not communicative. HEENT: Normocephalic, atraumatic. Sclerae pale. Conjunctivae clear. NECK: Supple. CHEST: Decreased breath sounds on bases. CARDIOVASCULAR: Regular rate and rhythm. ABDOMEN: Soft. EXTREMITIES: No edema. LABS AND IMAGING: Reviewed. ASSESSMENT AND PLAN: Patient has recently diagnosed vulvar cancer with locally advanced disease. Follow up with radiation oncologist including hospice. They declined it. Will follow patient closely. Job#: [id number] CQ
[2018-04-24] MEDS: DAPTOMYCIN 500 MG in SODIUM CHLORIDE 0.9% 100 ML IV SCH (21:05)
[2018-04-25] VITALS (7 sets, daily range): BP systolic 107–125; BP diastolic 53–60
[2018-04-25] MEDS: LEVALBUTEROL HCL SOLN NEBU 0.63 MG/3 ML NEB INH SCH ×5 (00:30→23:00)
[2018-04-25] MEDS: IPRATROPIUM BROMIDE 0.02% 2.5 ML NEB NEB SCH ×5 (00:30→23:00)
[2018-04-25 04:51] LABS: ANION GAP 10.3 mmol/L (8-16); BLOOD UREA NITROGEN 22 mg/dL (7-26); BUN/CREATININE RATIO 28 (6-25); CARBON DIOXIDE 29 mmol/L (22-29); CHLORIDE 106 mmol/L (98-107); CREATININE, SERUM 0.78 mg/dL (0.57-1.11); EST GLOMERULAR FILTRATION RATE > 60 ML/MIN (60-); GLUCOSE 127 mg/dL (74-118); MAGNESIUM 1.9 MG/DL (1.3-2.1); POTASSIUM 4.3 mmol/L (3.5-5.1); SODIUM 141 mmol/L (136-145)
[2018-04-25 04:59] LABS: CALCIUM 13.8 mg/dL (8.4-10.2)
[2018-04-25] MEDS: MEROPENEM 1 GM VIAL IV SCH ×3 (05:28→20:36)
[2018-04-25 06:37] LABS: BASOPHILS # (AUTO) 0.1 (0.0-0.1); BASOPHILS % 0.2 % (0.0-1.0); EOSINOPHILS # (AUTO) 1.6 (0.0-0.4); HEMATOCRIT 28.9 % (34.2-44.1); LYMPHOCYTES # (AUTO) 1.7 (1.0-3.2); LYMPHOCYTES % 5.2 % (18.0-39.1); MEAN CORPUSCULAR HEMOGLOBIN 32.5 pg (28-32); MEAN CORPUSCULAR HGB CONC 31.1 g/dL (31-35); MEAN CORPUSCULAR VOLUME 104.3 fL (81-99); MONOCYTES % 3.1 % (4.4-11.3); NEUTROPHILS # (AUTO) 27.1 (2.1-6.9); NEUTROPHILS % 84.6 % (38.7-80.0); PLATELET COUNT 159 x10e3/uL (140-360); RED BLOOD COUNT 2.77 x10e6/uL (3.6-5.1); RED CELL DISTRIBUTION WIDTH 17.5 % (11.7-14.4)
[2018-04-25] MEDS: ACETAMINOPHEN 325 MG TAB PO PRN ×2 (06:43→20:49)
[2018-04-25] MEDS: FAMOTIDINE 20 MG/2 ML VIAL IV SCH ×2 (09:00→16:45)
[2018-04-25] MEDS: POTASSIUM CHLORIDE 20MEQ/15ML UDC NG SCH (09:00)
[2018-04-25] MEDS: ENOXAPARIN SOD INJ 60 MG/0.6 ML SYR SC SCH ×2 (09:00→16:45)
[2018-04-25] MEDS: FUROSEMIDE INJ 10 MG/ML 4 ML VIAL IV SCH (09:00)
[2018-04-25] MEDS: FENTANYL 50 MCG/HR PATCH TOP SCH (09:30)
[2018-04-25] MEDS ORDERED: SODIUM CHLORIDE 0.9% 1000ML 1,000 ML IV SCH (10:00)
[2018-04-25] MEDS: BETAMETHASONE/CLOTRIMAZOLE CR 15 GM TUBE TOP SCH ×2 (10:00→17:00)
[2018-04-25] MEDS: BALSAM PERU/CASTOR OIL 60 GM OINT...G. TP SCH ×2 (10:00→17:00)
[2018-04-25 10:16] LABS: BAND NEUTROPHILS % (MANUAL) 12 %; EOSINOPHILS % (MANUAL) 1 % (0-7); LYMPHOCYTES % (MANUAL) 4 % (19-48); MONOCYTES % (MANUAL) 3 % (3.4-9.0); NEUTROPHILS % (MANUAL) 80 % (40-74)
[2018-04-25 10:17] LABS: PLATELET ESTIMATE ADEQUATE; PLATELET MORPHOLOGY COMMENT MODERATE LARGE; RBC MORPHOLOGY COMMENT NORMAL
--- NOTE | 2018-04-25 11:28 | Progress Note ---
DATE: April 25, 2018 FOLLOWUP PAIN MANAGEMENT PROGRESS NOTE REASON FOR FOLLOWUP: Pain management. The patient has had multiple issues with ongoing pain, . excruciating pain, not being very well controlled at this moment. Her does not believe in the pain, so does not want to give pain medication, but now he is being convinced by all of us to help her with palliative care. He does understands and now agrees with having to do some pain medicine. PHYSICAL EXAMINATION GENERAL: She is in pain, but not in acute distress. VITAL SIGNS: Within normal limits. HEENT: Normocephalic. NECK: Supple. LUNGS: Clear. HEART: Regular rate and rhythm. ABDOMEN: Obese, soft. BACK: Shows some spasm. LABORATORY DATA: Noted. ASSESSMENT AND PLAN 1. Chronic pain syndrome. 2. Chronic back pain syndrome, ongoing pain. Will continue supportive care. Will follow her closely. . Job#: [id number]
[2018-04-25] MEDS: DAPTOMYCIN 500 MG in SODIUM CHLORIDE 0.9% 100 ML IV SCH (19:00)
[2018-04-26] VITALS (7 sets, daily range): BP systolic 124–160; BP diastolic 58–64
[2018-04-26 03:28] LABS: BASOPHILS # (AUTO) 0.2 (0.0-0.1); BASOPHILS % 0.6 % (0.0-1.0); EOSINOPHILS # (AUTO) 1.6 (0.0-0.4); HEMATOCRIT 27.3 % (34.2-44.1); HEMOGLOBIN 8.5 g/dL (12.0-16.0); LYMPHOCYTES # (AUTO) 1.8 (1.0-3.2); LYMPHOCYTES % 6.7 % (18.0-39.1); MEAN CORPUSCULAR HEMOGLOBIN 32.9 pg (28-32); MEAN CORPUSCULAR HGB CONC 31.1 g/dL (31-35); MEAN CORPUSCULAR VOLUME 105.8 fL (81-99); MONOCYTES % 3.8 % (4.4-11.3); NEUTROPHILS # (AUTO) 21.9 (2.1-6.9); PLATELET COUNT 134 x10e3/uL (140-360); RED BLOOD COUNT 2.58 x10e6/uL (3.6-5.1)
[2018-04-26 03:44] LABS: ANION GAP 8.3 mmol/L (8-16); BLOOD UREA NITROGEN 26 mg/dL (7-26); BUN/CREATININE RATIO 31 (6-25); CARBON DIOXIDE 32 mmol/L (22-29); CHLORIDE 106 mmol/L (98-107); CREATININE, SERUM 0.84 mg/dL (0.57-1.11); EST GLOMERULAR FILTRATION RATE > 60 ML/MIN (60-); GLUCOSE 116 mg/dL (74-118); POTASSIUM 4.3 mmol/L (3.5-5.1); SODIUM 142 mmol/L (136-145)
[2018-04-26 03:47] LABS: CALCIUM 14.8 mg/dL (8.4-10.2)
[2018-04-26] MEDS: MEROPENEM 1 GM VIAL IV SCH ×2 (06:02→16:13)
[2018-04-26] MEDS: LEVALBUTEROL HCL SOLN NEBU 0.63 MG/3 ML NEB INH SCH ×2 (07:00→12:45)
[2018-04-26] MEDS: IPRATROPIUM BROMIDE 0.02% 2.5 ML NEB NEB SCH ×2 (07:00→12:46)
[2018-04-26 07:06] LABS: BAND NEUTROPHILS % (MANUAL) 6 %; EOSINOPHILS % (MANUAL) 10 % (0-7); LYMPHOCYTES % (MANUAL) 3 % (19-48); MONOCYTES % (MANUAL) 2 % (3.4-9.0); NEUTROPHILS % (MANUAL) 78 % (40-74)
[2018-04-26 07:18] LABS: ANISOCYTOSIS SLIGHT; PLATELET ESTIMATE SLIGHTLY INCREASED; RBC MORPHOLOGY COMMENT NORMAL; SMUDGE CELLS FEW
[2018-04-26 07:19] LABS: PLATELET MORPHOLOGY COMMENT FEW GIANT
[2018-04-26] MEDS: ENOXAPARIN SOD INJ 60 MG/0.6 ML SYR SC SCH ×2 (09:09→17:57)
[2018-04-26] MEDS: FUROSEMIDE INJ 10 MG/ML 4 ML VIAL IV SCH (09:09)
[2018-04-26] MEDS: POTASSIUM CHLORIDE 20MEQ/15ML UDC NG SCH (09:09)
[2018-04-26] MEDS: FAMOTIDINE 20 MG/2 ML VIAL IV SCH ×2 (09:09→17:57)
[2018-04-26] MEDS: ACETAMINOPHEN 325 MG TAB PO PRN (09:09)
--- NOTE | 2018-04-26 09:44 | Progress Note ---
DATE: April 26, 2018 Patient was seen and examined today. She appeared comfortable. Still not much communicative. PHYSICAL EXAMINATION HEENT: Normocephalic and atraumatic. Sclerae pink. Conjunctivae clear. NECK: Supple. CHEST: Decreased breath sounds at the bases. ABDOMEN: Soft. EXTREMITIES: No edema. LABS AND IMAGING: Reviewed. ASSESSMENT AND PLAN: The patient with a history of multiple medical conditions. I am currently following for vulvar cancer, deep venous thrombosis and anemia. Vulvar cancer. Recommendation is outpatient management with concurrent chemo and radiation. The patient's family was discussed about other options, including comfort care and Hospice management. No final decision yet. Anemia. Current hemoglobin is stable. Thrombocytopenia. Platelet count is fluctuating. Deep venous thrombosis. The patient is continued on anticoagulation. Will continue to manage her. Will follow the patient. Job#: [id number] DARLINE
[2018-04-26] MEDS: BETAMETHASONE/CLOTRIMAZOLE CR 15 GM TUBE TOP SCH ×2 (10:21→17:57)
[2018-04-26] MEDS: BALSAM PERU/CASTOR OIL 60 GM OINT...G. TP SCH ×2 (10:21→17:57)
[2018-04-26] MEDS ORDERED: PAMIDRONATE DISODIUM 30 MG/VIAL IV ONE (10:30)
[2018-04-26] MEDS ORDERED: FUROSEMIDE INJ 10 MG/ML 4 ML VIAL IV NR (10:30)
[2018-04-26] MEDS ORDERED: PAMIDRONATE DISODIUM IV ONE (12:00)
[2018-04-26] MEDS ORDERED: SODIUM CHLORIDE 0.9% IV ONE (12:00)
--- NOTE | 2018-04-26 14:24 | Progress Note ---
DATE: April 25, 2018 INFECTIOUS DISEASE PROGRESS NOTE The patient remains encephalopathic. She is not coughing. No dyspnea at rest. No vomiting. No diarrhea. She keeps moaning. No other systemic complaints reported. In the previous 24 hours, she had temperatures up to 99.3 degrees Fahrenheit. She is hemodynamically stable. She has no gross pallor, no obvious icterus, no oropharyngeal lesions. The neck is supple. The chest is symmetric. Breath sounds are coarse in the lung carr. Heart sounds are regular. There is no new murmur. The abdomen is soft. Bowel sounds are present. No acute erythema of the extremities. Her white count is fluctuating, currently 32.0, was previously 24.1. Her creatinine 0.7. There are no new significant positive cultures. IMPRESSION: She is septic. 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 She has cirrhosis with portal hypertension. She is encephalopathic. I suggest continue current management, continue supportive care. Job#: [id number] VIKKI
--- NOTE | 2018-04-26 14:49 | Progress Note ---
DATE: April 26, 2018 The patient remains somewhat delirious/encephalopathic. She is moaning. She is not coughing. No dyspnea at rest. No vomiting. No diarrhea. No overt medication reaction reported. In the past 24 hours, she had temperatures up to 101.2 degrees Fahrenheit. She is stable hemodynamically. She has no gross pallor, no obvious icterus, no oropharyngeal lesions. Her neck is supple. The chest is symmetric. Breath sounds are decreased in the lung carr. Heart sounds are regular without a new murmur. The abdomen is soft. Bowel sounds are present. No acute erythema of the extremities. Her Port-A-Cath site is clean. Her white count is 27.0, down from 32.0. It is fluctuating. Her creatinine 0.8. Blood and urine cultures from April 19 and are negative. IMPRESSION: She is septic. She has vulvar cancer with metastasis to lymph nodes. I am concerned that her fevers may be related to Port-A-Cath infection, although fever from her malignancy is a possibility. I suggest to continue current management. If she is stable, we should consider changing her Port-A-Cath. Continue to monitor temperatures, CBC and renal function. Continue supportive care. I am told that the patient is to be transferred to an LTAC facility. Job#: [id number]
--- NOTE | 2018-04-26 16:08 | Discharge Summary ---
ADMISSION DIAGNOSES 1. Sepsis. 2. Hypercalcemia. 3. Complicated urinary tract infection. 4. Suprapubic catheter associated urinary tract infection. 5. Normocytic anemia. 6. Hyponatremia. 7. Transaminitis. 8. Morbid obesity. 9. Acute metabolic encephalopathy. 10. Vulvar cancer with metastasis. DISCHARGE DIAGNOSES 1. Sepsis. 2. Hypercalcemia. 3. Complicated urinary tract infection. 4. Suprapubic catheter associated urinary tract infection. 5. Normocytic anemia. 6. Hyponatremia. 7. Transaminitis. 8. Morbid obesity. 9. Acute metabolic encephalopathy. 10. Vulvar cancer with metastasis. 11. Left lower extremity deep vein thrombosis. 12. Ruled out bacteremia. 13. Ruled out urinary tract infection. 14. Thrombocytopenia. 15. Ruled out Clostridium difficile. 16. Fever. HISTORY: Patient has a history of fibromyalgia, vulvar cancer diagnosed in February 2018 without chemo or surgical management, urinary retention status post suprapubic catheter placement in February 2018, small-bowel obstruction with partial bowel resection in 2011, chronic lower back pain. Surgical history of suprapubic catheter placement in February 2018, partial bowel resection due to small-bowel obstruction in 2011, and right-sided chest port placement. HOSPITAL COURSE: A 68-year-old female who is originally from [place] is here for medical management of the vulvar carcinoma. The patient had a port placed a week prior to admission to [facility]. Per the patient's , the doctors had difficulty in resecting the tumor. The patient went to [facility] for a port placement. After going home from the port placement, the patient fell, had rigors and chills, and went back to the facility. At [facility], labs were obtained that showed a markedly elevated white blood cell count. On admission patient was started on vancomycin and Zosyn per ID, which was later changed to Merrem and Cubicin per ID rec due to elevated white count and fever. Hematology-Oncology as well as GI were consulted and Pain Management. CT of the abdomen on admission showed large enhancing partially necrotic mass extending from the right vulva to the posterior perineum at the level of the anus, large enhancing 8 cm mass in the left inguinal region highly suspicious for metastatic inguinal lymph node conglomerate, left external iliac and left common iliac lymph nodes likely metastatic, moderate hepatomegaly with subtle nodularity of the hepatic contour suggesting cirrhosis, moderate splenomegaly, cholelithiasis without evidence of cholecystitis, several fat- and bowel-containing anterior pelvic wall hernias, no evidence of incarceration or strangulation. Due to encephalopathy, patient had an NG tube placed. wanted to delay the NG tube placement until he was sure that the patient was not going to be able to wake up and feed herself. After a few days of having the NG tube placed without having any improvement in the encephalopathy, GI was consulted for a PEG placement. PEG was placed on April 21, 2018, without any issues. Per Hematology, patient had an MRI of the brain due to encephalopathy that showed no acute abnormality or evidence of metastatic disease. Due to elevated white count and fever, patient had a chest x-ray that showed bilateral perihilar or left lower lobe air-space disease, may represent pneumonia or edema. Patient also had blood cultures and urine cultures which were both negative on admission and a vaginal wound culture that showed E. coli. Again the patient had a urine culture and blood cultures done on the and that were negative, and a repeat urine culture on the that was still negative. Due to diarrhea, patient was tested for C. diff, which was negative as well. Patient's neurological status did not improve during hospitalization. The original plan was for the patient to discharge home for outpatient chemoradiation. That is no longer an option. Patient will discharge to an LTAC for long-term antibiotics and physical therapy. Patient's agrees to the plan, as well as outpatient oncologist. On day of discharge WBC is 27, down from the previous day of 32, hemoglobin 8.5, hematocrit 27.3, platelet of 134. Sodium 142, potassium 4.3, creatinine of 0.84, calcium of 14.8. Patient will receive Aredia 45 mg x1 prior to discharge per Hematology-Oncology. Patient will also remain on Lovenox 60 mg subcutaneous b.i.d. at time of discharge per Hematology-Oncology. The ID doctor will follow the patient over to [facility]. He recommends to continue the medications, the IV antibiotics that she is currently on. She will discharge with all inpatient medications at the new facility. Consults and agree to plan. Patient will transfer over to LTAC today. Dictated by: Sheila Rosado NP CYRUS BARRERA MD Job#: [id number] EV
[2018-04-26] MEDS ORDERED: MEROPENEM 1 GM VIAL IV ONE (16:15)
--- NOTE | 2018-05-04 12:48 | Consultation ---
DATE OF CONSULTATION: April 12, 2018 PAIN MANAGEMENT CONSULTATION REFERRING PHYSICIAN: Dr. Aldo Morgan REASON FOR CONSULTATION: Pain management, having ongoing pain issues. History of vulvar cancer, following radiation and medical oncology treatment. HISTORY OF PRESENT ILLNESS: This is a 68-year-old female with a history of vulvar cancer diagnosed in February 2018. She came from [place] and here for medical management for the vulvar carcinoma. Having ongoing pain, back pain, low back pain, pelvic pain, 10/10 on a scale of 0 to 10 with 0 being no pain and 10 being the worst pain. The pain is constant, aching, dull, sharp, shooting, burning, stabbing sometimes, unbearable, excruciating pain episodes with flare-ups multiple times in the daytime. She has not yet received chemotherapy, but a port has been placed. Per patient's , the doctor had difficulty resecting the tumor. She has been to [facility] for port placement. When she went home, she fell and developed acute low back pain with chills. She went back to the facility. She is being admitted. The patient's notes the patient has been coughing but has been complaining of pain as outpatient. He is not sure where the pain is being located. PAST MEDICAL HISTORY: Fibromyalgia, vulvar cancer diagnosed in 2017 without chemo or surgical management, urinary retention off and on required suprapubic catheter placement, small-bowel obstruction with partial bowel resection in 2011, constipation, chronic low back pain, chronic pelvic pain. PAST SURGICAL HISTORY: Suprapubic catheter placement in February 2018. Partial bowel resection done in 2011. Right side of the chest port placement done. ALLERGIES: SEE MAR. FAMILY HISTORY: She is and has 1 child. No alcohol, illicits or cigarette smoking in the past. MEDICATIONS: Please see MAR. REVIEW OF SYSTEMS: Unobtainable. PHYSICAL EXAMINATION VITAL SIGNS: Have been reviewed. GENERAL: Not in acute distress. A tired-appearing woman resting in bed. HEENT: Normocephalic. NECK: Supple. LUNGS: Clear bilaterally. HEART: Regular rhythm. ABDOMEN: Soft, nontender and nondistended. Suprapubic catheter in place. EXTREMITIES: Have 1+ leg edema on both sides. SKIN: Dry. PSYCHIATRIC: Flat affect with moaning and groaning due to pain. NEUROLOGIC: Examination is nonfocal. LAB DATA: Reviewed. ASSESSMENT AND PLAN: This is a 68-year-old female with history of cancer, chronic pain syndrome, ongoing pain. Will start some IV medication for the pain control. Morphine sulfate IV 2 mg q.4 h. and fentanyl patch 25 mcg q.72 h. along with some [place] q.4 p.r.n. severe pain. Will follow along closely. Thank you, Dr. Morgan, for this consultation. I will follow her with you. YNES SANTANA MD Job#: [id number]
--- OUTSIDE RECORDS SUMMARY | 2018-06-09 23:54 | XMS REPORT ---
Author Author [facility] Address Unknown Phone Unavailable Care Team Providers Care Manufacturer'S Service Representative Name Role Phone CYRUS BARRERA Unavailable Unavailable Problems This patient has no known problems. Allergies, Adverse Reactions, Alerts This patient has no known allergies or adverse reactions. Medications This patient has no known medications. Results Test Description Test Time Test Comments Text Results Atomic Results Result Comments CHEST SINGLE (PORTABLE) 2018-04-23 06:27:00 [place] [address] Patient Name: ARNAUD DOVE MR #: [id number] : 1950 Age/Sex: 68/F Req #: [id number] Adm Physician: CYRUS BARRERA MD Ordered by: Rosi Monge [employer] Report #: [id number] Location: [facility]/SURG Room/ Bed: [facility] Procedure: [id number] DX/CHEST SINGLE ( PORTABLE) Exam Date: 04/23/18 Exam Time: 0600 REPORT STATUS: Signed EXAMINATION: CHEST SINGLE (PORTABLE) INDICATION: Pneumonia. COMPARISON: 04/17/2018 FINDINGS : TUBES and LINES: Right chest port is stable. NG tube has been removed. LUNGS: Lungs are not well inflated. There are bibasilar atelectasis. There is mild prominence of the central pulmonary vasculature, consistent with pulmonary venous congestion. Confluent opacities in the bilateral perihilar and left lower lobe are stable PLEURA: No pleural effusion or pneumothorax. HEART AND MEDIASTINUM: Cardiac size is mildly enlarged. BONES AND SOFT TISSUES: No acute osseous lesion. Soft tissues are unremarkable. UPPER ABDOMEN: No free air under the diaphragm. IMPRESSION: Stable findings in the chest with bilateral perihilar and left lower lobe airspace disease. These findings may represent pneumonia or edema Signed by: Dr. Albino Malcolm M.D. on 04/23/2018 6:28 AM Dictated By : ALBINO MADRID MD 7 Transcribed By: EDISON on 04/23/18627 COPY TO: ROSI MONGE NP MRI BRAIN WOW 2018-04-20 13:00:00 [place] [address] Patient Name: ARNAUD DOVE MR #: [id number] : 1950 Age/Sex: 68/F Req #: [id number] Adm Physician: CYRUS BARRERA MD Ordered by: ETTA RUANO MD Report #: [id number] Location: MED/SURG3 Room/Bed: [facility] Procedure: [id number] MRI/MRI BRAIN WOW Exam Date: Exam Time: REPORT STATUS: Signed History: Rule out metastases Comparison studies: None Technique: Pre-contrast: Sagittal T2; axial T1-IR, MPGR, DWI, T2 FLAIR Post-contrast: axial and coronal T1. Intravenous contrast: 20 cc of Gadavist. Findings: Scalp: No abnormal signal. No masses. Bone marrow: Normal in signal intensity. Brain sulci: Appropriate for age. Ventricles: Normal in size . No hydrocephalus. Extra-axial: No masses, fluid collections or hemorrhage. Parenchyma: Few T2/flair hyperintensities of the periventricular and the white matter No masses, hemorrhage, acute or chronic vascular insults. No enhancing abnormalities. Suprasellar region: No abnormalities. Craniocervical junction: No abnormalities. Patent foramen magnum. No Chiari one malformation.. Vessels: Normal flow-voids in the arteries and sinuses. Incidental findings: None IMPRESSION: 1. No acute abnormality or evidence of metastatic disease. 2. Mild chronic microvascular ischemic changes of the white matter. Signed by: DR Toni Parker M.D. on 04/20/2018 1:09 PM Dictated By: TONI ZUNIGA MD 130 Transcribed By: EDISON on 04/20/18 130 COPY TO: ETTA GARRETT MD CHEST SINGLE (PORTABLE) 2018-04-17 11:20:00 [place] [address] Patient Name: ARNAUD DOVE MR #: [id number] : 1950 Age/Sex: 68/F Req #: [id number] Adm Physician: CYRUS BARRERA MD Ordered by: Rosi Monge [employer] Report #: [id number] Location: [facility] Room/ Bed: [facility] Procedure: [id number] DX/CHEST SINGLE ( PORTABLE) Exam Date: Exam Time: REPORT STATUS: Signed Examination: Single AP view of the chest. COMPARISON: None. INDICATION: Sepsis. DISCUSSION: Lines/tubes: Right chest Port-A-Cath with distal tip projected on the cavoatrial junction. NG/ orogastric tube extending below the diaphragm, with distal portion extending to the left upper quadrant, with distal tip not included. Lungs: Bilateral hypoinflation. Prominence of the pulmonary vasculature bilaterally. Increased density in the left lower lobe may be related to effusion, atelectasis or developing pneumonia in the proper setting. Pleura: Increased density in the lower left hemithorax suggestive of pleural effusion. There is no pneumothorax. Heart and mediastinum: The cardiac silhouette is mildly enlarged possibly magnification by portable technique. Bones and soft tissues: No acute bony abnormalities. IMPRESSION: 1. Bilateral pulmonary venous congestion. 2. Small left pleural effusion and left basilar atelectasis. Developing pneumonia not excluded in the proper clinical setting. Signed by: Dr. Suze Hemphill M.D. on 04/17/2018 11:25 AM Dictated By: SANDRA HEMPHILL MD, MD 24 Transcribed By : EDISON on 04/17/181124 COPY TO: ROSI MONGE NP ABDOMEN-1VIEW (KUB) 2018-04-15 13:29:00 [place] [address] Patient Name: ARNAUD DOVE MR #: [id number] : 1950 Age/Sex: 68/F Req #: [id number] Adm Physician: CYRUS BARRERA MD Ordered by: Rosi Monge [employer] Report #: [id number] Location: [facility] Room/Bed: [facility] Procedure: DX/ABDOMEN-1VIEW (KUB) Exam Date : 04/15/18 Exam Time: 1250 REPORT STATUS: Signed PROCEDURE: X-RAY ABDOMEN - KUB COMPARISON: None. INDICATIONS: NG TUBE PLACEMENT FINDINGS: Limited exam for placement of enteric tube See conclusion . CONCLUSION: 1. Enteric tube has distal tip projecting in the distal stomach body/antrum. Harvey Rojas M.D. Dictated by: Harvey Rojas M.D. on 04/15/2018 at 13:29 Electronically approved by: Harvey Rojas M.D. on 04/15/2018 at 13 :29 Dictated By: HARVEY ROJAS MD 132 Transcribed By: YANIQUE on 04/15/18 1329 COPY TO: ROSI MONGE NP ABDOMEN-1VIEW (KUB) 2018-04-15 12:00:00 [place] [address] Patient Name: ARNAUD DOVE MR #: [id number] : 1950 Age/Sex: 68/F Req #: [id number] Adm Physician: CYRUS BARRERA MD Ordered by: CYRUS BARRERA MD Report #: [id number] Location: MED/SUR[facility]3 Room/Bed: [facility] Procedure: [id number] DX/ABDOMEN-1VIEW (KUB) Exam Date : Exam Time: REPORT STATUS: Signed PROCEDURE: X-RAY ABDOMEN - KUB COMPARISON: None. INDICATIONS: NG TUBE PLACEMENT FINDINGS: See conclusion CONCLUSION: 1. Limited KUB for evaluation of enteric tube placement. Enteric tube is noted below the left hemidiaphragm, with distal tip projecting in the proximal fundus and proximal side-port likely just past the GE junction. Further advancement is recommended. 2. No air-filled, dilated loops of bowel are identified. Harvey Rojas M.D. Dictated by: Harvey Rojas M.D. on 04/15/2018 at 12:00 Electronically approved by: Harvey Rojas M.D. on 04/15/2018 at 12:00 Dictated By: HARVEY ROJAS MD 1200 Transcribed By: YANIQUE on 04/15/18 1200 COPY TO: CYRUS BARRERA MD CT ABDOMEN/PELVIS W 2018-04-13 18:20:00 [place] [address] Patient Name: ARNAUD DOVE MR #: [id number] : 1950 Age/Sex: 68/F Req #: [id number] Adm Physician: CYRUS BARRERA MD Ordered by: STEPHANIE ANDREWS MD Report #: [id number] Location: [facility] Room/Bed: [facility] Procedure: [id number] CT/CT ABDOMEN/PELVIS W Exam Date: 04/13/18 Exam Time: 1720 REPORT STATUS: Signed PROCEDURE: CT ABDOMEN AND PELVIS WITH CONTRAST TECHNIQUE : The abdomen and pelvis were scanned utilizing a multidetector helical scanner from the diaphragm to the lesser trochanter after the IV administration of 100 cc of Isovue 370 and the oral administration of water. Coronal and sagittal multiplanar reformations were obtained. COMPARISON : None. INDICATIONS: ABSCESS, PNEUMONIA, HEMATOMA FINDINGS: Exam limited by beam attenuation as the patient was unable to lift arms LOWER THORAX: Please see CT chest performed same date for further detail. HEPATOBILIARY: Decreased attenuation of the hepatic parenchyma compared to the spleen, consistent with fatty infiltration. Liver is enlarged, measuring 24 cm in the right midclavicular line. Subtle nodularity of the hepatic contour. No focal masses. No intra-or extrahepatic biliary ductal dilation. 0.5 cm radiopaque stone in the dependent portion of the gallbladder neck. No wall thickening or pericholecystic fluid. SPLEEN: Moderate splenomegaly, measuring 18 cm in craniocaudal diameter. No focal lesions. PANCREAS: No focal masses or ductal dilatation. ADRENALS: No adrenal nodules. KIDNEYS/ URETERS: No hydronephrosis, stones, or solid mass lesions. PELVIC ORGANS/ BLADDER: Bladder is decompressed. Suprapubic catheter in place. The uterus is atrophic. No adnexal masses. PERITONEUM / RETROPERITONEUM: No free air or fluid. LYMPH NODES: Enlarged left common iliac lymph node which measures 2.4 cm in short axis (series 2 image 77). Enlarged left external iliac lymph node/conglomerate which measures 3.7 cm in short axis (series 2 image 88). There is an enhancing 7.5 x 7.2 x 8.4 cm mass in the left inguinal region, likely representing inguinal lymph node conglomerate (series 2, image 114). Enlarged, enhancing right inguinal lymph node, which measures 1.6 cm in short axis (series 2, image 107). Borderline enlarged, mildly enhancing, deep right inguinal lymph node (series 2, image 112), which measures 1.0 cm in short axis. Mildly enlarged enhancing left inguinal lymph node measuring 1.1 cm in short axis (series 2 image 100). Mildly enlarged batsheva hepatis nodes which measure 1.0 and 1.2 cm in short axis (series 2, image 53 and 56). Mildly enlarged portacaval lymph node which measures 1.1 cm in short axis (series 2 image 52). VESSELS: The celiac trunk, superior and inferior mesenteric, and bilateral renal arteries are patent. Portal, superior mesenteric, and splenic veins are patent. The portal vein is dilated , measuring 1.5 cm. The splenic vein is dilated. GI TRACT: No bowel dilation or evidence of obstruction. No pericolonic inflammatory changes. Distal descending and sigmoid colon diverticulosis without diverticulitis. BONES AND SOFT TISSUES: Generalized osteopenia. Decreased height of the L1 vertebral body, likely reflecting an age-indeterminate compression deformity. Facet hypertrophy. L5-S1. Marked degenerative changes in bilateral hip joints. No aggressive lytic lesions. There is an approximately 12.7 x 4.3 x 9.9 cm enhancing solid mass with central areas of hypodensity suggesting necrosis, which extends from the right vulva to the posterior perineum at the level of the anus (second series 2, images 28-40, and series 300, image 70). Anterior pelvic wall hernias, as follows: * Approximately 10.1 x 4.7 x 4.6 cm anterior paramedian pelvic wall hernia containing fat and loops of large bowel (series 2 image 91 and sagittal image 94). The bowel has unremarkable appearance, without evidence of obstruction or strangulation. * A 12.5 x 6.3 x 8.9 cm fat and large and small bowel containing hernia located immediately inferior to the previously described hernia (series 2, image 100 and sagittal image 90). No evidence of bowel incarceration or strangulation. * An adjacent 7.0 x 4.7 x 5.9 cm fat and large bowel containing hernia is also noted (series 2, image 106, and sagittal image 68), without evidence of bowel strangulation or incarceration. IMPRESSION: 1. Large, enhancing, partially necrotic mass extending from the right vulva, to the posterior perineum at the level of the anus. 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 2. Large enhancing 8 cm mass in the left inguinal region, highly suspicious for metastatic inguinal lymph node conglomerate. There are additional enhancing bilateral enlarged inguinal lymph nodes which are highly suspicious for metastases . 3. Left external iliac and left common iliac lymph nodes, likely metastatic. 4. Moderate hepatomegaly with subtle nodularity of the hepatic contour suggesting cirrhosis. Moderate splenomegaly , dilated main portal and splenic veins, suggest portal hypertension. 5. Mildly enlarged batsheva hepatis and portacaval lymph nodes are likely reactive secondary to cirrhosis rather than metastatic given their location. 6. Cholelithiasis, without CT evidence of cholecystitis. 7. Several fat and bowel containing anterior pelvic wall hernias, as described. No evidence of bowel incarceration or strangulation. Harvey Rojas M.D. Dictated by: Harvey Rojas M.D. on 04/13/2018 at 18:20 Electronically approved by: Harvey Rojas M.D. on 04/13/2018 at 19:14 Dictated By: HARVEY ROJAS MD 1914 Transcribed By: YANIQUE on 04/13/181913 COPY TO: STEPHANIE ANDREWS MD PET/CT SKULL TO THIGH 2018-03-26 14:32:21 Addendum created at 04/01/2018 9: 10:10 AM:CORRECTION:Referring physician: Lorne Mckinney [facility]ENTERddendum by: MERE HamptonLINICAL INDICATION: C51.9 Malignant neoplasm of vulva, unspecified MODALITY: Siemens Vrvanagraph Horizon PET/CT (Iterative dose reduction techniques are used).TECHNIQUE: The patient fasted for more than 6 hours. Serum glucose is 115 mg/dl. 12.66 mCi F-18 FDG (18-jomtui-1-deoxyglucose ) are administered IV. After an appropriate time delay in a quiet room, dedicated imaging of the body (from inferior skull to mid-thighs) is performed. Low dose CT scan of the same area is acquired without IV contrast for attenuation correction of the PET data and image co-registration. 2D and 3D reconstructions are accomplished. Quantitative analysis with physician-assisted reconstruction is performed.Computed Tomography Dose Index: 12.94 mGy.IMPRESSION :1 Increased soft tissue at the vulva and adjacent structures as described below with hypermetabolic activity consistent with known primary neoplasm. The increased FDG activity extends to the distal rectum as described below. Involvement cannot be excluded.2 Pelvic hypermetabolic lymphadenopathy consistent with metastatic disease.3 Hypermetabolic mediastinal and hilar nodes , etiology undetermined.4 Splenomegaly.5. Cholelithiasis.6. Hepatic steatosis.7. GCSF effect.8. Suprapubic bladder catheter in placeFINDINGS: COMPARISON: None.HEAD AND NECK: There is no intracranial FDG activity suspicious for neoplasia. There is no hypermetabolic lymphadenopathy.CHEST: There is no increased FDG activity in the lung parenchyma. There are no suspicious pulmonary nodules. 0.8 x 1.1 cm precarinal node image 55 displays peak SUV 12.6 PET image 54. 1.4 x 1.8 cm subcarinal node displays peak SUV 12.2. Other hypermetabolic nodes are seen in the para esophageal preaortic, left hilar, prevascular para-aortic, and paratracheal compartments. There is no axillary supraclavicular hypermetabolic lymphadenopathy. ABDOMEN AND PELVIS: FDG activity in the liver is homogeneous with no uptake suspicious for replacement lesion. Hepatic attenuation is diffusely decreased, 30 HU on image 98 consistent with fatty infiltration. The spleen is enlarged, 16.5 cm sagittal dimension. The metabolic activity is diffusely relatively increased, possibly secondary to GCSF effect. FDG activity in the pancreas, adrenal glands, kidneys , ureters, bladder, and bowel physiologic. A gallstone is demonstrated. There are no inflammatory changes in the gallbladder wall.There is a 1.5 x 1.9 cm left common iliac node image 115 with peak SUV 13.0. 2.4 x 2.9 cm left iliac bifurcation node displays peak SUV 21.3. 6.1 x 6.1 cm left inguinal node displays peak SUV 14.1 PET image 145. There is a 1.1 1.4 cm right inguinal node with peak SUV 9.3 PET image 140.There is increased soft tissue at the vulva which extends to the perineum and inferiorly between the buttocks which displays increased FDG activity, peak SUV 27.6 PET image 157. The increased FDG activity extends to the distal rectum near the anus, peak SUV 8.9 PET image 153. A suprapubic bladder catheter is in place. There is a large ventral hernia containing non compromised colon and small bowel segments.MUSCULOSKELETAL: There is no FDG avid osseous lytic or blastic lesion suspicious for metastasis. Diffuse increased FDG activity is seen in the marrow consistent with GCSF effect.PQRS 436: [id number] (For official use only.)
== END 2018-04-26 19:33 | DRG 871 ==
LOC: MED/SURG3 17:43
PROVIDERS: ADMIT Internal Medicine; ATTEND Internal Medicine
PROC: 0DH63UZ Insertion of Feeding Device into Stomach, Percutaneous Approach (ICD-10-PCS; 2018-04-21)
PROC: 0DJ08ZZ Inspection of Upper Intestinal Tract, Via Natural or Artificial Opening Endoscopic (ICD-10-PCS; principal; 2018-04-21 15:49)
PROC: 30243N1 Transfusion of Nonautologous Red Blood Cells into Central Vein, Percutaneous Approach (ICD-10-PCS; 2018-04-22)
DX: A41.9 Sepsis, unspecified organism (principal); G93.41 Metabolic encephalopathy; J18.9 Pneumonia, unspecified organism; N39.0 Urinary tract infection, site not specified; T83.518A Infection and inflammatory reaction due to other urinary catheter, initial encounter; E87.1 Hypo-osmolality and hyponatremia; Z68.43 Body mass index [BMI] 50.0-59.9, adult; E44.1 Mild protein-calorie malnutrition; Z68.42 Body mass index [BMI] 45.0-49.9, adult; I82.4Z2 Acute embolism and thrombosis of unspecified deep veins of left distal lower extremity; C77.4 Secondary and unspecified malignant neoplasm of inguinal and lower limb lymph nodes; C77.5 Secondary and unspecified malignant neoplasm of intrapelvic lymph nodes; K76.6 Portal hypertension; E83.52 Hypercalcemia; M54.5 Low back pain; E66.01 Morbid (severe) obesity due to excess calories; L89.322 Pressure ulcer of left buttock, stage 2; L89.312 Pressure ulcer of right buttock, stage 2; M79.7 Fibromyalgia; C51.9 Malignant neoplasm of vulva, unspecified; R33.9 Retention of urine, unspecified; R65.20 Severe sepsis without septic shock; K74.60 Unspecified cirrhosis of liver; G89.4 Chronic pain syndrome; K29.60 Other gastritis without bleeding; R16.1 Splenomegaly, not elsewhere classified; K80.20 Calculus of gallbladder without cholecystitis without obstruction; D63.0 Anemia in neoplastic disease; D69.59 Other secondary thrombocytopenia; B96.20 Unspecified Escherichia coli [E. coli] as the cause of diseases classified elsewhere
CPT/HCPCS: 36415; 36430; 43246; 70553; 71045; 71260; 74018; 74177; 80048; 80053; 80061; 80076; 80202; 81001; 82105; 82140; 82150; 82607; 82728; 82948; 83036; 83540; 83605; 83690; 83735; 83880; 83970; 84466; 85007; 85025; 85027; 85610; 86850; 86900; 86920; 87040; 87071; 87086; 87186; 87205; 87493; 93306; 93971; 94640; 96361; 97139; J1170; J1650; J1940; J2060; J2185; J2270; J2405; J2430; J2543; J3370; J3430; J7040; J7042; J7050; P9016; Q9967